=== PATIENT | male | born 1970 | race Caucasian/White ===

== ENCOUNTER → 2017-03-13 11:40 | Outpatient (REF) | payer MEDICARE, SELFPAY ==
[2017-03-13 14:18] LABS: Amphetamine/Metha Screen,Urine Negative ng/mL (<1000); Barbiturates Screen,Urine Negative ng/mL (<200); Benzodiazepines Screen,Urine Negative ng/mL (200); Cannabinoid Screen,Urine Negative ng/mL (<50); Cocaine Screen,Urine Negative ng/g (<300); Methadone Screen,Urine Negative ng/mL (<300); Opiate Screen,Urine Negative ng/mL (<300); Phencyclidine Screen,Urine Negative ng/mL (<25)
== END ==
LOC: LAB 11:40
PROVIDERS: Visit Provider Emergency Medicine
DX: Z79.891 Long term (current) use of opiate analgesic (principal)
CPT/HCPCS: 80305

== ENCOUNTER → 2017-04-10 11:00 | Outpatient (CLI) | payer MEDICARE, SELFPAY ==
[2017-04-10 17:45] LABS: Amphetamine/Metha Screen,Urine Negative ng/mL (<1000); Barbiturates Screen,Urine Negative ng/mL (<200); Benzodiazepines Screen,Urine Negative ng/mL (200); Cannabinoid Screen,Urine Negative ng/mL (<50); Cocaine Screen,Urine Negative ng/g (<300); Methadone Screen,Urine Negative ng/mL (<300); Opiate Screen,Urine Negative ng/mL (<300); Phencyclidine Screen,Urine Negative ng/mL (<25)
== END ==
PROVIDERS: Visit Provider Emergency Medicine
DX: Z79.899 Other long term (current) drug therapy (principal)
CPT/HCPCS: 80305

== ENCOUNTER → 2017-05-08 11:06 | Outpatient (REF) | payer MEDICARE, SELFPAY ==
[2017-05-08 15:13] LABS: Amphetamine/Metha Screen,Urine Negative ng/mL (<1000); Barbiturates Screen,Urine Negative ng/mL (<200); Benzodiazepines Screen,Urine Negative ng/mL (200); Cannabinoid Screen,Urine Negative ng/mL (<50); Cocaine Screen,Urine Negative ng/g (<300); Methadone Screen,Urine Negative ng/mL (<300); Opiate Screen,Urine Positive ng/mL (<300); Phencyclidine Screen,Urine Negative ng/mL (<25)
== END ==
LOC: LAB 11:06
PROVIDERS: Visit Provider Emergency Medicine
DX: Z79.899 Other long term (current) drug therapy (principal)
CPT/HCPCS: 80305

== ENCOUNTER → 2017-06-08 09:24 | Outpatient (REF) | payer MEDICARE, SELFPAY ==
[2017-06-08 13:44] LABS: Amphetamine/Metha Screen,Urine Negative ng/mL (<1000); Barbiturates Screen,Urine Negative ng/mL (<200); Benzodiazepines Screen,Urine Negative ng/mL (200); Cannabinoid Screen,Urine Negative ng/mL (<50); Cocaine Screen,Urine Negative ng/g (<300); Methadone Screen,Urine Negative ng/mL (<300); Opiate Screen,Urine Negative ng/mL (<300); Phencyclidine Screen,Urine Negative ng/mL (<25)
== END ==
LOC: LAB 09:24
PROVIDERS: Visit Provider Emergency Medicine
DX: G89.29 Other chronic pain (principal); Z79.899 Other long term (current) drug therapy
CPT/HCPCS: 80305

== ENCOUNTER → 2017-07-06 11:10 | Outpatient (REF) | payer MEDICARE, SELFPAY ==
[2017-07-06 14:17] LABS: Amphetamine/Metha Screen,Urine Negative ng/mL (<1000); Barbiturates Screen,Urine Negative ng/mL (<200); Benzodiazepines Screen,Urine Negative ng/mL (200); Cannabinoid Screen,Urine Negative ng/mL (<50); Cocaine Screen,Urine Negative ng/g (<300); Methadone Screen,Urine Negative ng/mL (<300); Opiate Screen,Urine Negative ng/mL (<300); Phencyclidine Screen,Urine Negative ng/mL (<25)
== END ==
LOC: LAB 11:10
PROVIDERS: Visit Provider Emergency Medicine
DX: G89.29 Other chronic pain (principal)
CPT/HCPCS: 80305

== ENCOUNTER → 2017-07-31 13:06 | Outpatient (CLI) | payer MEDICARE, SELFPAY ==
[2017-07-31 18:31] LABS: Amphetamine/Metha Screen,Urine Negative ng/mL (<1000); Barbiturates Screen,Urine Negative ng/mL (<200); Benzodiazepines Screen,Urine Negative ng/mL (200); Cannabinoid Screen,Urine Negative ng/mL (<50); Cocaine Screen,Urine Negative ng/g (<300); Methadone Screen,Urine Negative ng/mL (<300); Opiate Screen,Urine Positive ng/mL (<300); Phencyclidine Screen,Urine Negative ng/mL (<25)
== END ==
PROVIDERS: Visit Provider Emergency Medicine
DX: G89.29 Other chronic pain (principal)
CPT/HCPCS: 80305

== ENCOUNTER → 2017-09-02 13:20 | Outpatient (CLI) | payer MEDICARE, SELFPAY ==
[2017-09-02 18:37] LABS: Amphetamine/Metha Screen,Urine Negative ng/mL (<1000); Barbiturates Screen,Urine Negative ng/mL (<200); Benzodiazepines Screen,Urine Negative ng/mL (<200); Cannabinoid Screen,Urine Negative ng/mL (<50); Cocaine Screen,Urine Negative ng/mL (<300); Methadone Screen,Urine Negative ng/mL (<300); Opiate Screen,Urine Negative ng/mL (<300); Phencyclidine Screen,Urine Negative ng/mL (<25)
== END ==
PROVIDERS: Visit Provider Emergency Medicine
DX: G89.29 Other chronic pain (principal)
CPT/HCPCS: 80305

== ENCOUNTER → 2017-10-02 10:16 | Outpatient (REF) | payer MEDICARE, SELFPAY ==
[2017-10-06 16:22] LABS: Amphetamine/Metha Screen,Urine Negative ng/mL (<1000); Barbiturates Screen,Urine Negative ng/mL (<200); Benzodiazepines Screen,Urine Negative ng/mL (<200); Cannabinoid Screen,Urine Negative ng/mL (<50); Cocaine Screen,Urine Negative ng/mL (<300); Methadone Screen,Urine Negative ng/mL (<300); Opiate Screen,Urine Negative ng/mL (<300); Phencyclidine Screen,Urine Negative ng/mL (<25)
== END ==
LOC: LAB 10:16
PROVIDERS: Visit Provider Emergency Medicine
DX: Z79.899 Other long term (current) drug therapy (principal)
CPT/HCPCS: 80305

== ENCOUNTER → 2017-10-22 08:25 | Outpatient (CLI) | payer MEDICARE, SELFPAY ==
--- NOTE | 2017-10-22 08:32 | XR_ITS ---
XR hip RT 2-3V w/pelvis HISTORY: ITS.REASON: RIGHT HIP PAIN ORDERING PHYSICIAN: Reynaldo Sanabria MD PATIENT AGE: 47 years COMPARISON: None FINDINGS: No fracture or dislocation is evident. There is minimal spurring along the inferior aspect of the acetabulum with slight decrease in the joint space medially. No lytic or blastic change. Minimal calcification noted in the medial aspect of the upper thigh possibly vascular. IMPRESSION: Minimal osteoarthritic change of the right hip
== END ==
PROVIDERS: PCP Emergency Medicine; Visit Provider Orthopaedic Surgery
DX: M25.551 Pain in right hip (principal)
CPT/HCPCS: 73502

== ENCOUNTER → 2017-11-02 13:09 | Outpatient (REF) | payer MEDICARE, SELFPAY ==
[2017-11-02 18:26] LABS: Amphetamine/Metha Screen,Urine Negative ng/mL (<1000); Barbiturates Screen,Urine Negative ng/mL (<200); Benzodiazepines Screen,Urine Negative ng/mL (<200); Cannabinoid Screen,Urine Negative ng/mL (<50); Cocaine Screen,Urine Negative ng/mL (<300); Methadone Screen,Urine Negative ng/mL (<300); Opiate Screen,Urine Negative ng/mL (<300); Phencyclidine Screen,Urine Negative ng/mL (<25)
== END ==
LOC: LAB 13:09
PROVIDERS: PCP Emergency Medicine; Visit Provider Emergency Medicine
DX: G89.29 Other chronic pain (principal)
CPT/HCPCS: 80305

== ENCOUNTER → 2017-11-19 14:14 | Outpatient (CLI) | payer MEDICARE, SELFPAY ==
--- NOTE | 2017-11-19 14:15 | MR_ITS ---
MR hip RT wo con HISTORY: Right hip pain right leg pain with numbness and tingling ITS.REASON: hip pain ORDERING PHYSICIAN: Leonel Mark MD PATIENT AGE: 47 years COMPARISON: 10/22/2017 TECHNIQUE: Routine multiplanar multiecho sequences performed without contrast FINDINGS: No obvious fracture or dislocation. No evidence of avascular necrosis. There are minimal osteoarthritic changes of the hips with slight decrease in the joint space. The surrounding soft tissues have an unremarkable appearance. No significant joint effusion. There is slight increased T1 and T2 signal involving the anterior aspect of the lower ileum on both sides and may be related to some partial red marrow replacement. Incidental note is made of a right renal allograft within the pelvis. There is a 6 small right subarticular cyst in the lateral aspect of the acetabulum measuring approximately 9 mm. IMPRESSION: 1. Minimal osteoarthritic changes of the hips with a small subarticular cyst of the right acetabulum. 2. No acute finding with no evidence of avascular necrosis, fracture, or other significant anomalies
--- NOTE | 2017-11-19 14:15 | MR_ITS ---
MR lumbar spine wo con, MR 3-d myelogram/MRCP HISTORY: RT hip pain x2YRS. RT leg pain, numbness, and tingling. Hx kidney transplant. ITS.REASON: hip pain ORDERING PHYSICIAN: Leonel Mark MD PATIENT AGE: 47 years Comparison: None TECHNIQUE: Standard multiplanar multiecho sequences are performed without contrast. 3-D MIP and myelographic images are also rendered and reviewed FINDINGS: The spinal cord ends at the L1 level. There is normal alignment T12-L1: Minimal disc desiccation. L1-L2: Unremarkable. L2-L3: Mild facet and ligamentous hypertrophy L3-L4: Mild facet and ligamentum flavum hypertrophy. L4-5: There is mild concentric bulging disc along with facet and ligamentum hypertrophy with moderate right-sided foraminal narrowing and bilateral lateral recess narrowing. The bulging disc abuts the anterior aspect of both L5 nerve roots without displacement. . The disc is somewhat eccentric toward the right causing moderate right foraminal narrowing. L5-S1: Mild degenerative disc disease with small broad-based central disc protrusion slightly eccentric toward the left abutting the intermediate aspect of the left L5 nerve root. There is an annular fissure in the L5-S1 disc posteriorly and centrally. No extruded herniated disc or canal stenosis is evident. IMPRESSION: 1. L4-5: There is mild concentric bulging disc along with facet and ligamentum hypertrophy with moderate right-sided foraminal narrowing and bilateral lateral recess narrowing. The bulging disc abuts the anterior aspect of both L5 nerve roots without displacement. . The disc is somewhat eccentric toward the right causing moderate right foraminal narrowing. 2. L5-S1: Mild degenerative disc disease with small broad-based central disc protrusion slightly eccentric toward the left abutting the anteromedial aspect of the left L5 nerve root. There is an annular fissure in the L5-S1 disc posteriorly and centrally
== END ==
PROVIDERS: PCP Emergency Medicine; Visit Provider Emergency Medicine
DX: M51.16 Intervertebral disc disorders with radiculopathy, lumbar region (principal); M25.551 Pain in right hip; M54.5 Low back pain
CPT/HCPCS: 72148; 73721; 76376

== ENCOUNTER → 2017-12-30 19:42 | Outpatient (CLI) | payer MEDICARE, SELFPAY ==
[2017-12-30 21:22] LABS: Amphetamine/Metha Screen,Urine Negative ng/mL (<1000); Barbiturates Screen,Urine Negative ng/mL (<200); Benzodiazepines Screen,Urine Negative ng/mL (<200); Cannabinoid Screen,Urine Negative ng/mL (<50); Cocaine Screen,Urine Negative ng/mL (<300); Methadone Screen,Urine Negative ng/mL (<300); Opiate Screen,Urine Negative ng/mL (<300); Phencyclidine Screen,Urine Negative ng/mL (<25)
== END ==
PROVIDERS: Visit Provider Emergency Medicine
DX: M51.36 Other intervertebral disc degeneration, lumbar region (principal)
CPT/HCPCS: 80305

== ENCOUNTER → 2018-01-13 09:53 | Outpatient (CLI) | payer MEDICARE, SELFPAY ==
[2018-01-13 11:41] LABS: Albumin Level 3.6 gm/dL (3.4-5.0); Anion Gap 12.4 mEq/L (5-15); Blood Urea Nitrogen 19 mg/dL (7-18); Calcium 9.6 mg/dL (8.5-10.1); Carbon Dioxide 30 mmol/L (21.0-32.0); Chloride 103 mmol/L (98-107); Creatinine,Serum 1.32 mg/dL (0.70-1.30); Estimated Glomerular Filt Rate 58 ml/min (>60); GFR (African American) 70 ML/MIN (>60); Glucose 80 mg/dL (74-106); Phosphorous 4.1 mg/dL (2.4-4.9); Potassium 4.4 mmoL/L (3.5-5.1); Sodium 141 mmol/L (136-145)
== END ==
PROVIDERS: Visit Provider Internal Medicine Nephrology
DX: N18.9 Chronic kidney disease, unspecified (principal); Z79.899 Other long term (current) drug therapy; Z94.0 Kidney transplant status
CPT/HCPCS: 36415; 80069

== ENCOUNTER → 2018-01-29 14:40 | Outpatient (CLI) | payer MEDICARE, SELFPAY ==
[2018-01-29 16:37] LABS: Amphetamine/Metha Screen,Urine Negative ng/mL (<1000); Barbiturates Screen,Urine Negative ng/mL (<200); Benzodiazepines Screen,Urine Negative ng/mL (<200); Cannabinoid Screen,Urine Negative ng/mL (<50); Cocaine Screen,Urine Negative ng/mL (<300); Methadone Screen,Urine Negative ng/mL (<300); Opiate Screen,Urine Negative ng/mL (<300); Phencyclidine Screen,Urine Negative ng/mL (<25)
[2018-02-06 13:08] LABS: Oxycodone (GC/MS) 1353 ng/mL (Cutoff=100)
[2018-02-06 14:00] LABS: Opiates Negative (Cutoff=100); Oxymorphone (GC/MS) 727 ng/mL (Cutoff=100)
== END ==
PROVIDERS: Visit Provider Emergency Medicine
DX: M51.36 Other intervertebral disc degeneration, lumbar region (principal); N18.9 Chronic kidney disease, unspecified; Z79.899 Other long term (current) drug therapy; Z94.0 Kidney transplant status
CPT/HCPCS: 80305; 80361; 80365; G0480

== ENCOUNTER → 2018-02-26 11:30 | Outpatient (CLI) | payer MEDICARE, SELFPAY ==
[2018-02-26 11:37] LABS: Microscopic, Urine URINE MICROSCOPIC (MICROSCOPIC)
[2018-02-26 12:27] LABS: Basophils % 0.5 % (0.1-2.0); Eosinophils # 0.3 K/mm3 (0.0-0.4); Eosinophils % 4.4 % (0.1-12.0); Lymphocytes # 1.5 K/mm3 (0.7-4.5); Mean Corpuscular HGB Conc 32.6 g/dL (31.8-35.4); Mean Corpuscular Hemoglobin 32.9 pg (27.0-31.2); Mean Corpuscular Volume 101.1 fl (80-94); Mean Platelet Volume 6.6 fl (7.4-10.4); Monocytes # 0.5 K/mm3 (0.1-1.0); Neutrophils # 3.7 K/mm3 (1.8-7.8); Neutrophils % 62.1 % (37.0-80.0); Platelet Count 243 K/mm3 (142-424); Red Blood Count 4.55 M/mm3 (4.60-6.20); White Blood Count 5.9 K/mm3 (4.8-10.8)
[2018-02-26 13:30] LABS: Appearance,Urine CLEAR (Clear); Bilirubin,Urine Negative (Negative); Blood, Urine 3+ (Negative); Color,Urine YELLOW (Yellow); Glucose,Urine (UA) Negative (Negative); Ketones,Urine Negative (Negative); Leukocyte Esterase,Urine Negative (Negative); Nitrate,Urine Negative (Negative); Protein,Urine Negative (Negative); Urobilinogen,Urine 0.2 EU/dl (0.2)
[2018-02-26 13:33] LABS: Albumin Level 3.7 gm/dL (3.4-5.0); Anion Gap 15.9 mEq/L (5-15); Blood Urea Nitrogen 19 mg/dL (7-18); Calcium 9.2 mg/dL (8.5-10.1); Carbon Dioxide 24 mmol/L (21.0-32.0); Chloride 102 mmol/L (98-107); Creatinine,Serum 1.29 mg/dL (0.70-1.30); Estimated Glomerular Filt Rate 59 ml/min (>60); GFR (African American) 72 ML/MIN (>60); Glucose 115 mg/dL (74-106); Magnesium 1.4 mg/dL (1.4-2.2); Phosphorous 4.1 mg/dL (2.4-4.9); Potassium 4.9 mmoL/L (3.5-5.1); Sodium 137 mmol/L (136-145)
[2018-02-26 14:58] LABS: Bacteria,Urine Trace /lpf; Squamous Epithelial Cell,Urine Occasional #/hpf (0-5)
[2018-02-26 16:11] LABS: Amphetamine/Metha Screen,Urine Negative ng/mL (<1000); Barbiturates Screen,Urine Negative ng/mL (<200); Benzodiazepines Screen,Urine Negative ng/mL (<200); Cannabinoid Screen,Urine Negative ng/mL (<50); Cocaine Screen,Urine Negative ng/mL (<300); Methadone Screen,Urine Negative ng/mL (<300); Opiate Screen,Urine Negative ng/mL (<300); Phencyclidine Screen,Urine Negative ng/mL (<25)
[2018-03-04 04:18] LABS: Oxycodone (GC/MS) 800 ng/mL (Cutoff=100)
[2018-03-05 17:06] LABS: Opiates Negative (Cutoff=100); Oxymorphone (GC/MS) 568 ng/mL (Cutoff=100)
== END ==
PROVIDERS: Internal Medicine Nephrology; Visit Provider Emergency Medicine
DX: M51.36 Other intervertebral disc degeneration, lumbar region (principal); N18.9 Chronic kidney disease, unspecified; Z94.0 Kidney transplant status; Z79.899 Other long term (current) drug therapy
CPT/HCPCS: 36415; 80069; 80305; 80361; 80365; 81001; 83735; 85025; G0480

== ENCOUNTER → 2018-04-27 11:30 | Outpatient (CLI) | payer MEDICARE, SELFPAY ==
[2018-04-28 15:17] LABS: Amphetamine/Metha Screen,Urine Negative ng/mL (<1000); Barbiturates Screen,Urine Negative ng/mL (<200); Benzodiazepines Screen,Urine Negative ng/mL (<200); Cannabinoid Screen,Urine Negative ng/mL (<50); Cocaine Screen,Urine Negative ng/mL (<300); Methadone Screen,Urine Negative ng/mL (<300); Opiate Screen,Urine Positive ng/mL (<300); Phencyclidine Screen,Urine Negative ng/mL (<25)
== END ==
PROVIDERS: Visit Provider Emergency Medicine
DX: M51.36 Other intervertebral disc degeneration, lumbar region (principal)
CPT/HCPCS: 80305

== ENCOUNTER → 2018-06-23 16:00 | Outpatient (CLI) | payer MEDICARE, SELFPAY ==
[2018-06-24 12:14] LABS: Amphetamine/Metha Screen,Urine Negative ng/mL (<1000); Barbiturates Screen,Urine Negative ng/mL (<200); Benzodiazepines Screen,Urine Negative ng/mL (<200); Cannabinoid Screen,Urine Negative ng/mL (<50); Cocaine Screen,Urine Negative ng/mL (<300); Methadone Screen,Urine Negative ng/mL (<300); Opiate Screen,Urine Positive ng/mL (<300); Phencyclidine Screen,Urine Negative ng/mL (<25)
== END ==
PROVIDERS: Visit Provider Emergency Medicine
DX: M51.36 Other intervertebral disc degeneration, lumbar region (principal)
CPT/HCPCS: 80305

== ENCOUNTER → 2018-08-18 16:58 | Outpatient (CLI) | payer MEDICARE, SELFPAY ==
[2018-08-18 18:25] LABS: Amphetamine/Metha Screen,Urine Negative ng/mL (<1000); Barbiturates Screen,Urine Negative ng/mL (<200); Benzodiazepines Screen,Urine Negative ng/mL (<200); Cannabinoid Screen,Urine Negative ng/mL (<50); Cocaine Screen,Urine Negative ng/mL (<300); Methadone Screen,Urine Negative ng/mL (<300); Opiate Screen,Urine Positive ng/mL (<300); Phencyclidine Screen,Urine Negative ng/mL (<25)
== END ==
LOC: LAB 16:59 → LAB.DROPOF 17:18
PROVIDERS: Visit Provider Emergency Medicine
DX: M51.36 Other intervertebral disc degeneration, lumbar region (principal)
CPT/HCPCS: 80305

== ENCOUNTER → 2018-10-19 16:53 | Outpatient (CLI) | payer MEDICARE, SELFPAY ==
[2018-10-19 19:44] LABS: Amphetamine/Metha Screen,Urine Negative ng/mL (<1000); Barbiturates Screen,Urine Negative ng/mL (<200); Benzodiazepines Screen,Urine Negative ng/mL (<200); Cannabinoid Screen,Urine Negative ng/mL (<50); Cocaine Screen,Urine Negative ng/mL (<300); Methadone Screen,Urine Negative ng/mL (<300); Opiate Screen,Urine Positive ng/mL (<300); Phencyclidine Screen,Urine Negative ng/mL (<25)
== END ==
PROVIDERS: Visit Provider Emergency Medicine
DX: M51.36 Other intervertebral disc degeneration, lumbar region (principal)
CPT/HCPCS: 80305

== ENCOUNTER → 2018-11-17 16:51 | Outpatient (CLI) | payer MEDICARE, SELFPAY | PROVIDERS: Visit Provider Emergency Medicine | DX: R50.9 Fever, unspecified (principal) | CPT/HCPCS: 87086 ==

== ENCOUNTER → 2018-12-07 11:39 | Outpatient (CLI) | payer MEDICARE, SELFPAY ==
[2018-12-08 08:25] LABS: HIV Screen 4th Generation wRfx Non Reactive (Non Reactive)
[2018-12-09 10:57] LABS: Treponema pallidum Ab (FTA-ABS Non Reactive (Non Reactive)
[2018-12-09 21:08] LABS: Neisseria gonorrhoeae, NAA Negative (Negative)
== END ==
PROVIDERS: Visit Provider Nurse Practitioner Family
DX: Z20.2 Contact with and (suspected) exposure to infections with a predominantly sexual mode of transmission (principal); Z11.4 Encounter for screening for human immunodeficiency virus [HIV]
CPT/HCPCS: 86703; 86780; 87491; 87591; G0432

== ENCOUNTER → 2018-12-17 13:38 | Outpatient (CLI) | payer MEDICARE, SELFPAY ==
[2018-12-17 15:26] LABS: Amphetamine/Metha Screen,Urine Negative ng/mL (<1000); Barbiturates Screen,Urine Negative ng/mL (<200); Benzodiazepines Screen,Urine Negative ng/mL (<200); Cannabinoid Screen,Urine Negative ng/mL (<50); Cocaine Screen,Urine Negative ng/mL (<300); Methadone Screen,Urine Negative ng/mL (<300); Opiate Screen,Urine Negative ng/mL (<300); Phencyclidine Screen,Urine Negative ng/mL (<25)
[2018-12-26 13:17] LABS: Oxycodone Positive (.); Oxymorphone Positive (.)
[2018-12-26 17:23] LABS: Oxycodone Confirm 436 ng/mL (Cutoff=100); Oxymorphone Confirm 476 ng/mL (Cutoff=100)
== END ==
PROVIDERS: Visit Provider Emergency Medicine
DX: M51.36 Other intervertebral disc degeneration, lumbar region (principal); Z79.899 Other long term (current) drug therapy
CPT/HCPCS: 80305; 80365

== ENCOUNTER → 2019-02-01 16:45 | Outpatient (CLI) | payer MEDICARE, SELFPAY ==
[2019-02-01 18:34] LABS: Amphetamine/Metha Screen,Urine Negative ng/mL (<1000); Barbiturates Screen,Urine Negative ng/mL (<200); Benzodiazepines Screen,Urine Negative ng/mL (<200); Cannabinoid Screen,Urine Negative ng/mL (<50); Cocaine Screen,Urine Negative ng/mL (<300); Methadone Screen,Urine Negative ng/mL (<300); Opiate Screen,Urine Negative ng/mL (<300); Phencyclidine Screen,Urine Negative ng/mL (<25)
[2019-02-10 10:21] LABS: Oxycodone Positive (.); Oxymorphone Positive (.)
[2019-02-10 11:13] LABS: Oxycodone Confirm 477 ng/mL (Cutoff=100); Oxymorphone Confirm 767 ng/mL (Cutoff=100)
== END ==
PROVIDERS: Visit Provider Emergency Medicine
DX: M51.36 Other intervertebral disc degeneration, lumbar region (principal); Z79.899 Other long term (current) drug therapy
CPT/HCPCS: 80305; 80365

== ENCOUNTER → 2020-01-03 12:45 | Outpatient (CLI) | payer MEDICARE, SELFPAY ==
--- NOTE | 2020-01-03 13:46 | CA_ITS ---
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 Probable occlusion of the left mid to distal radial artery. Velocities are decreased in the left axillary,brachial, proximal radial and ulnar arteries. 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 Probable occlusion of the left mid to distal radial artery. Velocities are decreased in the left axillary,brachial, proximal radial and ulnar arteries. Electronically signed by : Steven Rizvi MD 01/03/2020 17:28:11
== END ==
PROVIDERS: PCP Emergency Medicine; Visit Provider Emergency Medicine
DX: I73.89 Other specified peripheral vascular diseases (principal)
CPT/HCPCS: 93931

== ENCOUNTER → 2020-02-02 11:40 | Outpatient (CLI) | payer MEDICARE, SELFPAY ==
--- NOTE | 2020-02-02 12:04 | XR_ITS ---
PROCEDURE: XR CHEST 2V CLINICAL HISTORY: Effusion Shortness of air and smoker COMPARISON: No exams were available for comparison FINDINGS: The cardiomediastinal silhouette and pulmonary vascularity are within normal limits. Dense consolidation is present in the left lower lobe consistent with pneumonia and/or volume loss with effusion. Minimal prominence noted in the right suprahilar region. The right lung is clear. No acute bony findings. Pleural thickening is present along the left lateral and upper hemithorax possibly related to loculated effusion IMPRESSION: Dense consolidation of the left lower lobe with effusion. Pneumonia with parapneumonic effusion or postobstructive pneumonia is considered. Follow-up is strongly recommended. If the pneumonia does not clear then CT with contrast may provide further evaluation. There is some pleural thickening along the left lateral and upper hemithorax is well. Dictated by: Steven Rizvi MD 02/02/2020 13:27 Steven Rizvi MD in [facility] 02/02/2020 13:27
[2020-02-02 12:26] LABS: Basophils % 0.5 % (0.1-2.0); Eosinophils # 0.4 K/mm3 (0.0-0.4); Eosinophils % 4.5 % (0.1-12.0); Hematocrit 40.5 % (42.0-52.0); Lymphocytes # 1.7 K/mm3 (0.7-4.5); Mean Corpuscular HGB Conc 32.2 g/dL (31.8-35.4); Mean Corpuscular Hemoglobin 33.1 pg (27.0-31.2); Mean Corpuscular Volume 102.8 fl (80-94); Mean Platelet Volume 7.1 fl (7.4-10.4); Monocytes # 0.5 K/mm3 (0.1-1.0); Monocytes % 5.2 % (1.7-9.3); Neutrophils % 69.8 % (37.0-80.0); Platelet Count 485 K/mm3 (142-424); Red Blood Count 3.94 M/mm3 (4.60-6.20); Red Cell Distribution Width 14.8 % (11.5-17.5); White Blood Count 8.7 K/mm3 (4.8-10.8)
[2020-02-02 12:47] LABS: Chloride 101 mmol/L (98-107); Potassium 4.6 mmoL/L (3.5-5.1); Sodium 140 mmol/L (136-145)
[2020-02-02 12:50] LABS: Blood Urea Nitrogen 27 mg/dl (9-20); Estimated Glomerular Filt Rate 43 ml/min (>60); GFR (African American) 52 ML/MIN (>60)
[2020-02-02 12:51] LABS: Anion Gap 17.6 mEq/L (5-15); Calcium 10.4 mg/dl (8.4-10.2); Carbon Dioxide 26 mmol/L (22.0-30.0); Glucose 127 mg/dl (74-100)
== END ==
PROVIDERS: PCP Emergency Medicine; Visit Provider Internal Medicine Pulmonary Disease
DX: D86.1 Sarcoidosis of lymph nodes (principal); J45.909 Unspecified asthma, uncomplicated; J44.9 Chronic obstructive pulmonary disease, unspecified
CPT/HCPCS: 36415; 71046; 80048; 85025

== ENCOUNTER → 2020-02-06 09:55 | Outpatient (CLI) | payer MEDICARE, SELFPAY ==
--- NOTE | 2020-02-06 09:55 | US_ITS ---
PROCEDURE: US THORACENTESIS CLINICAL INDICATION: Effusion Left pleural effusion with shortness of breath COMPARISON: CR XR CHEST 2V from 02/02/2020 TECHNIQUE: Informed consent was obtain prior to procedure. After appropriate Time out, under aseptic conditions and local anesthesia with 1% buffered lidocaine using sonographic guidance a 6 Arabic Fueh-V-Ghuomfmp catheter was inserted into the pleural space in the left posterior hemithorax.. Approximately 1700 cc of serous fluid was drained. The patient tolerated the procedure well and left the radiology suite in stable condition. The fluid was sent to the laboratory for evaluation as requested. FINDINGS: Large left pleural effusion. Status post thoracentesis without complication. Post thoracentesis chest x-ray did not demonstrate any pneumothorax. IMPRESSION: Successful sonographic guided thoracentesis on the left complication. Dictated by: Steven Rizvi MD 02/07/2020 07:23 Steven Rizvi MD in [facility] 02/07/2020 07:23
--- NOTE | 2020-02-06 11:55 | XR_ITS ---
PROCEDURE: XR CHEST 2V CLINICAL HISTORY: S/P THORACENTESIS Follow-up thoracentesis, left-sided pleural effusion COMPARISON: CR XR CHEST 2V from 02/02/2020 FINDINGS: There has been an interval left-sided thoracentesis with marked reduction in size of the left pleural effusion with only small residual effusion noted. There is no evidence of pneumothorax. There is persistent left apical pleural thickening as well as increased density in the AP window of the mediastinum on the left. Patchy density is present in the left upper lobe which may be related to an area pneumonia or even developing nodule. Consider chest CT for further evaluation. There is mild prominence of the left hilum as well which chest CT with contrast is suggested. The left lower lobe atelectasis/collapse has improved with some mild residual opacification in the left lower lobe. No acute bony abnormalities. IMPRESSION: 1. Status post left-sided thoracentesis without evidence of pneumothorax with small residual effusion. 2. As above with left apical pleural thickening prominent left hilum/mediastinum and possible nodule or infiltrate in the left upper lobe with some patchy but improved density in the left lower lobe. CT chest with contrast may be of further value. Dictated by: Steven Rizvi MD 02/06/2020 12:23 Steven Rizvi MD in [facility] 02/06/2020 12:23
--- NOTE | 2020-02-06 15:00 | XR_ITS ---
PROCEDURE: XR CHEST 2V CLINICAL HISTORY: Follow-up thoracentesis COMPARISON: CR XR CHEST 2V from 02/02/2020 DX XR CHEST 2V from 02/06/2020 FINDINGS: No evidence of pneumothorax. There is increasing volume loss/consolidation in the left lower lobe. Pleural thickening noted in the left apex and left lateral hemithorax. There is increased density in the aortopulmonic window and in the left upper lobe. Right lung is clear. IMPRESSION: 1. Increasing consolidation/volume loss of the left lower lobe with no evidence of pneumothorax. 2. Persistent increased density in the AP window and in the left upper lobe with pleural thickening on the left. Consider chest CT with contrast for further evaluation. Dictated by: Steven Rizvi MD 02/06/2020 15:19 Steven Rizvi MD in [facility] 02/06/2020 15:19
[2020-02-07 10:33] LABS: Albumin, Body Fluid 2.9 g/dL (Not Estab.); Protein, Body Fluid 4.8 g/dL (.)
[2020-02-07 10:34] LABS: LD, Body Fluid 238 IU/L (.)
[2020-02-10 04:18] LABS: pH, Body Fluid 7.6 (Not Estab.)
== END ==
PROVIDERS: PCP Emergency Medicine; Visit Provider Internal Medicine Pulmonary Disease
DX: J90 Pleural effusion, not elsewhere classified (principal); R91.8 Other nonspecific abnormal finding of lung field; R06.02 Shortness of breath
CPT/HCPCS: 32555; 71046; 82042; 83615; 83986; 84155; 87070; 88112; 88305; 88342

== ENCOUNTER → 2020-02-14 13:21 | Outpatient (CLI) | payer MEDICARE, SELFPAY ==
--- NOTE | 2020-02-14 13:55 | XR_ITS ---
PROCEDURE: XR SHOULDER LT MIN 2V Referring Doctor: Mio Larkin Patient Age:49Y CLINICAL INDICATION: LT SHOULDER PAIN FOR SEVERAL MONTHS COMPARISON: CR XR CHEST 2V from 02/02/2020 DX XR CHEST 2V from 02/06/2020 FINDINGS: Left shoulder three views: AP internal and external rotation along with Y-view performed The mole head and neck are intact. Glenohumeral joint appears intact. . AC joint arthropathy noted with moderate spurring along the inferior aspect of the left AC joint.. The scapula and left upper ribs appear intact but the Apical pleural thickening at the left chest, again noted Incidental note calcification at the left carotid at or near the left carotid bifurcation at the left neck. IMPRESSION: No acute findings left shoulder. Glenohumeral joint intact The Degenerative changes at the left AC joint, otherwise unremarkable left shoulder Dictated by: Wang Carnes MD 02/14/2020 14:38 Wang Carnes MD in [facility] 02/14/2020 14:39
[2020-02-14 15:47] LABS: Basophils % 0.4 % (0.1-2.0); Eosinophils # 0.4 K/mm3 (0.0-0.4); Eosinophils % 4.6 % (0.1-12.0); Hematocrit 38.1 % (42.0-52.0); Hemoglobin 12.5 g/dL (14.1-18.0); Lymphocytes % 24.6 % (10-50); Mean Corpuscular HGB Conc 32.9 g/dL (31.8-35.4); Mean Corpuscular Hemoglobin 32.5 pg (27.0-31.2); Mean Corpuscular Volume 98.9 fl (80-94); Mean Platelet Volume 6.9 fl (7.4-10.4); Monocytes # 0.4 K/mm3 (0.1-1.0); Monocytes % 5.4 % (1.7-9.3); Neutrophils # 5.4 K/mm3 (1.8-7.8); Neutrophils % 64.9 % (37.0-80.0); Platelet Count 475 K/mm3 (142-424); Red Blood Count 3.85 M/mm3 (4.60-6.20); Red Cell Distribution Width 15.5 % (11.5-17.5); White Blood Count 8.3 K/mm3 (4.8-10.8)
[2020-02-14 16:33] LABS: Alanine Aminotransferase 10 U/L (12-78); Albumin Level 3.9 g/dl (3.5-5.0); Albumin/Globulin Ratio 1.2 (1.1-1.8); Alkaline Phosphatase 97 U/L (38-126); Anion Gap 15.7 mEq/L (5-15); Aspartate Amino Transferase 17 U/L (17-59); Bilirubin,Total 0.4 mg/dl (0.2-1.3); Blood Urea Nitrogen 25 mg/dl (9-20); Calcium 10.4 mg/dl (8.4-10.2); Carbon Dioxide 21 mmol/L (22.0-30.0); Chloride 103 mmol/L (98-107); Estimated Glomerular Filt Rate 46 ml/min (>60); GFR (African American) 55 ML/MIN (>60); Globulin 3.2 g/dL (1.3-3.2); Glucose 109 mg/dl (74-100); Lactate Dehydrogenase 102 U/L (313-618); Potassium 4.7 mmoL/L (3.5-5.1); Sodium 135 mmol/L (136-145); Total Protein,Serum 7.1 g/dl (6.3-8.2)
[2020-02-14 16:51] LABS: HCG,Quantitative 5 mIU/ml (0-5.42)
[2020-02-14 17:04] LABS: Prostate Specific Ag Screen 1.2 ng/ml (0.0-4.0)
[2020-02-16 11:49] LABS: CA 19-9 168 U/mL (0-35)
[2020-02-16 14:49] LABS: AFP, Tumor Marker 4.4 ng/mL (0.0-8.3); CEA 6.4 ng/mL (0.0-4.7)
[2020-02-18 23:34] LABS: Aspergillus flavus Negative (Neg:<1:1); Aspergillus fumigatus Negative (Neg:<1:1); Aspergillus niger Negative (Neg:<1:1)
[2020-02-19 07:08] LABS: Blastomyces Antibody Negative (Neg:<1:1)
== END ==
PROVIDERS: Visit Provider Internal Medicine Pulmonary Disease
DX: J84.10 Pulmonary fibrosis, unspecified (principal); J90 Pleural effusion, not elsewhere classified; C25.9 Malignant neoplasm of pancreas, unspecified; M25.512 Pain in left shoulder; R97.20 Elevated prostate specific antigen [PSA]; Z94.0 Kidney transplant status; R97.8 Other abnormal tumor markers; Z12.5 Encounter for screening for malignant neoplasm of prostate; Z87.891 Personal history of nicotine dependence
CPT/HCPCS: 36415; 73030; 80053; 82105; 82378; 83615; 84702; 85025; 86316; 86606; 86612; 86698; G0103

== ENCOUNTER 2020-02-19 12:21 | Emergency (ER) | payer MEDICARE, SELFPAY ==
--- NOTE | 2020-02-19 12:18 | ECG_ITS ---
APPROVED REPORT Exam: Resting ECG HR:89 bpm ECG Measurements Heart Rate 89 AXES MS 162 P 61 QRSd 98 QRS 38 QT 354 T 67 QTc 430 Conclusion Normal sinus rhythm Left atrial abnormality Inferior q waves, but of questionable significance Late R wave progression Abnormal ECG Electronically signed by : Shankar Carrasco, 02/19/2020 17:42:05
[2020-02-19 12:22] VITALS: BP 148/87; RESP 16; TEMP 36.6; O2SAT 98; BMI 23.4
--- NOTE | 2020-02-19 12:32 | XR_ITS ---
PROCEDURE: XR CHEST 2V CLINICAL HISTORY: chest pain Left-sided chest pain COMPARISON: CR XR CHEST 2V from 02/02/2020 DX XR CHEST 2V from 02/06/2020 CR XR CHEST 2V from 02/06/2020 US US THORACENTESIS from 02/06/2020 FINDINGS: Increased density is present in the left lower lobe consistent with a pleural effusion and lung collapse. The increased density is slightly worse compared to the previous exam. In addition, there is pleural thickening along the left hemithorax superiorly and there is consolidation in the left midlung which has developed since the previous exam. There is also some prominence of the mediastinum. The right lung is clear. IMPRESSION: Left lower lobe collapse with effusion with new area of consolidation/pneumonia in the left midlung. Prominent mediastinum. Suggest chest CT with contrast for further evaluation. Dictated by: Steven Rizvi MD 02/20/2020 05:34 Steven Rizvi MD in [facility] 02/20/2020 05:34
--- NOTE | 2020-02-19 12:32 | XR_ITS ---
PROCEDURE: XR SHOULDER LT MIN 2V CLINICAL INDICATION: chest/shoulder pain COMPARISON: CR XR SHOULDER LT MIN 2V from 02/14/2020 CR XR CHEST 2V from 02/19/2020 FINDINGS: No fracture or dislocation. No lytic or blastic change. There is normal mineralization. Mild osteoarthritic changes are present at the acromioclavicular joint Other findings:None. IMPRESSION: Mild osteoarthritis of the AC joint Dictated by: Steven Rizvi MD 02/20/2020 05:27 Steven Rizvi MD in [facility] 02/20/2020 05:27
--- NOTE | 2020-02-19 12:41 | HMH.EDGENADL ---
ED Disposition Clinical Impression: Chronic chest pain Disposition: Home, Self-Care Condition on Discharge: Good Referrals: PCP,No [Primary Care Provider] - - Critical Care Critical Care Time: No Attestation: On 02/19/20, the high probability of a clinically significant, sudden or life threatening deterioration of the following system(s) required my full and direct attention, intervention and personal management. The time I documented below is in addition to time spent performing reported procedures but includes the following listed in this critical care notation. Medical Decision Making - Medical Records Medical records reviewed: Yes: I reviewed the patient's medical records. - Pipo Inquiry Pt receiving controlled substance: No Vital Signs: 02/19/20 12:22 02/19/20 15:21 02/19/20 15:50 Temperature 98 F Temperature Source Oral Pulse Rate [Right Radial] 85 79 Respiratory Rate 16 18 Blood Pressure [Right Arm] 148/87 H 118/76 130/81 Blood Pressure Mean [Right Arm] 107 90 97 Blood Pressure Source [Right Arm] Automatic Cuff Automatic Cuff Automatic Cuff Blood Pressure Position [Right Arm] Sitting Sitting Sitting 02 Sat by Pulse Oximetry 98 97 97 Oxygen Delivery Method Room Air Room Air - Lab Data Lab Results 02/19/20 12:43: Amylase 47, Lipase 54 02/19/20 13:15: WBC 8.5, RBC 3.85 L, Hgb 12.6 L, Hct 37.7 L, MCV 97.8 H, MCH 32.7 H, MCHC 33.5, RDW 15.3, Plt Count 447 H, MPV 7.3 L, Neut % (Auto) 68.0, Lymph % (Auto) 20.2, Slope % (Auto) 6.8, Eos % (Auto) 4.5, Baso % (Auto) 0.5, Neut # (Auto) 5.8, Lymph # (Auto) 1.7, Slope # (Auto) 0.6, Eos # (Auto) 0.4, Baso # (Auto) 0.0 02/19/20 13:15: Sodium 141, Potassium 4.5, Chloride 105, Carbon Dioxide 26, Anion Gap 14.5, BUN 26 H, Creatinine 1.60 H, Estimated Creat Clear 59, Estimated GFR 46 L, Est GFR ( Amer) 55 L, Glucose 125 H, Calcium 10.6 H, Troponin I < 0.01 02/19/20 13:15: Total Bilirubin 0.4, Direct Bilirubin 0.2, Conjugated Bilirubin 0.0, Indirect Bilirubin 0.2, Unconjugated Bilirubin 0.1, AST 15 L, ALT 10 L, Alkaline Phosphatase 91, Total Protein 6.7, Albumin 3.7 02/19/20 15:20: Troponin I < 0.01 Result diagrams: 02/19/20 13:15 02/19/20 13:15 Orders (Tests/Meds): ED MEDICATIONS Discontinued Medications Generic Name Dose Route Start Last Admin Trade Name Serge PRN Reason Stop Dose Admin Morphine Sulfate 2 mg 02/19/20 12:32 02/19/20 12:49 Morphine 2mg/Ml Syringe IV 02/19/20 12:33 2 mg ONCE ONE Administration ORDERS Category Date Time Status US gallbladder Stat Exams 02/19/20 12:44 Taken XR chest 2V Stat Exams 02/19/20 12:32 Taken XR shoulder LT min 2V Stat Exams 02/19/20 12:32 Taken Troponin I Q3H Lab 02/19/20 18:45 Ordered Medical Decision Narrative: 49-year-old male with chronic chest pain presenting with acute on chronic chest pain and left shoulder pain. Nontoxic, afebrile, hemodynamically stable, oxygenating well on room air. Patient very concerned about his gallbladder despite me speaking with him about the possible etiology of his pain. Chest x-ray and left shoulder x-ray were negative for acute disease. Ultrasound of the gallbladder was negative. EKG is nonischemic and without arrhythmia. CBC, CMP are nonactionable. Troponins are flat and undetectable. Patient becoming very belligerent with the nursing staff and aggressive and threatening their safety so was discharged expeditiously upon ruling out emergent condition including pneumonia, pneumothorax, ACS, PE. General Adult HPI - General Chief complaint: PAIN Stated complaint: chest pain Time Seen by Provider: 02/19/20 12:21 Mode of Arrival: Ambulatory Limitations: No Limitations Description of Symptoms (Recalled from ER Triage Doc. by RN): PT c/o chest pain that has been ongoing for a couple of months with pain in his left shoulder also. Advises he came in today because the pain intensified - History of Present Illness HPI narrative: This
--- NOTE | 2020-02-19 12:44 | US_ITS ---
PROCEDURE: US GALLBLADDER CLINICAL INDICATION: abd pain Upper abdominal pain COMPARISON: MR [facility] CIRCULAR/O MRI-L-SPINE W/O from 07/09/2015 FINDINGS: Pancreas: Pancreas is not well delineated due to overlying bowel gas. CT or MRI without and with contrast with pancreatic protocol may provide further evaluation if clinically desired. Liver: Unremarkable. There is appropriate direction of blood flow within a non dilated portal vein. Right kidney: There is a right renal transplant in the pelvis which has an unremarkable appearance. The [facility] right kidney is not demonstrated. Gallbladder: Gallbladder wall is upper normal at 3 mm. There has not been appropriate fasting which could account for this finding. There is a persistent hyperechoic focus along the fundus of the gallbladder measuring approximately 7 mm. No shadowing evident from this area. This did not move and may represent a polyp. Common bile duct is normal at 6 mm. No shadowing stones are evident. IMPRESSION: 1. Gallbladder wall upper normal possibly due to nonfasting state. 2. Hyperechoic fixed focus within the fundus of the gallbladder at 7 mm which may be due to a polyp versus a nonshadowing adherent stone 3. Poor visualization of the pancreas Dictated by: Steven Rizvi MD 02/20/2020 09:59 Steven Rizvi MD in [facility] 02/20/2020 09:59
--- NOTE | 2020-02-19 13:13 | PC.NURSE ---
going to US
[2020-02-19 13:25] LABS: Amylase 47 U/L (30-110); Lipase 54 U/L (23-300)
[2020-02-19 13:28] LABS: Basophils % 0.5 % (0.1-2.0); Eosinophils # 0.4 K/mm3 (0.0-0.4); Eosinophils % 4.5 % (0.1-12.0); Hematocrit 37.7 % (42.0-52.0); Hemoglobin 12.6 g/dL (14.1-18.0); Lymphocytes # 1.7 K/mm3 (0.7-4.5); Lymphocytes % 20.2 % (10-50); Mean Corpuscular HGB Conc 33.5 g/dL (31.8-35.4); Mean Corpuscular Hemoglobin 32.7 pg (27.0-31.2); Mean Corpuscular Volume 97.8 fl (80-94); Mean Platelet Volume 7.3 fl (7.4-10.4); Monocytes # 0.6 K/mm3 (0.1-1.0); Monocytes % 6.8 % (1.7-9.3); Neutrophils # 5.8 K/mm3 (1.8-7.8); Platelet Count 447 K/mm3 (142-424); Red Blood Count 3.85 M/mm3 (4.60-6.20); Red Cell Distribution Width 15.3 % (11.5-17.5); White Blood Count 8.5 K/mm3 (4.8-10.8)
[2020-02-19 13:38] LABS: Anion Gap 14.5 mEq/L (5-15); Blood Urea Nitrogen 26 mg/dl (9-20); Calcium 10.6 mg/dl (8.4-10.2); Carbon Dioxide 26 mmol/L (22.0-30.0); Chloride 105 mmol/L (98-107); Creatinine Clearance Estimated 59 mL/min (50-200); Estimated Glomerular Filt Rate 46 ml/min (>60); GFR (African American) 55 ML/MIN (>60); Glucose 125 mg/dl (74-100); Potassium 4.5 mmoL/L (3.5-5.1); Sodium 141 mmol/L (136-145)
[2020-02-19 13:50] LABS: Alanine Aminotransferase 10 U/L (12-78); Albumin Level 3.7 g/dl (3.5-5.0); Alkaline Phosphatase 91 U/L (38-126); Aspartate Amino Transferase 15 U/L (17-59); Bilirubin,Direct 0.2 mg/dl (0.0-0.4); Bilirubin,Indirect 0.2 mg/dL (0.0-0.9); Bilirubin,Total 0.4 mg/dl (0.2-1.3); Bilirubin,Unconjugated 0.1 mg/dL (0.0-1.1); Total Protein,Serum 6.7 g/dl (6.3-8.2)
[2020-02-19 13:53] LABS: Troponin I < 0.01 ng/ml (0.00-0.034)
--- NOTE | 2020-02-19 15:11 | PC.NURSE ---
Lab at bedside
[2020-02-19 15:21] VITALS: BP 118/76; PULSE 85; O2SAT 97
[2020-02-19 15:47] LABS: Troponin I < 0.01 ng/ml (0.00-0.034)
[2020-02-19 15:50] VITALS: BP 130/81; PULSE 79; RESP 18; O2SAT 97
[2020-02-19 16:14] VITALS: BP 130/87; PULSE 74; RESP 16; TEMP 36.8; O2SAT 98
== END 2020-02-19 16:18 | disposition home or self-care (01) ==
PROVIDERS: Emergency Provider Physician Assistant
DX: R07.89 Other chest pain (principal); R73.9 Hyperglycemia, unspecified; K21.9 Gastro-esophageal reflux disease without esophagitis; R01.1 Cardiac murmur, unspecified; I10 Essential (primary) hypertension; E78.5 Hyperlipidemia, unspecified; Z87.891 Personal history of nicotine dependence; Z79.899 Other long term (current) drug therapy
CPT/HCPCS: 71046; 73030; 76705; 80048; 80076; 82150; 83690; 84484; 85025; 93005; 96374; 99283

== ENCOUNTER → 2020-02-27 09:10 | Outpatient (CLI) | payer MEDICARE, SELFPAY ==
--- NOTE | 2020-02-27 09:15 | CT_ITS ---
PROCEDURE: CT CHEST WO CON CLINICAL INDICATION: cough Pancreatic cancer Drain tube placed on thursday at COMPARISON: No exams were available for comparison TECHNIQUE: Axial images obtained with sagittal and coronal reformats. All CT scans at the facility use one or more dose reduction, viz: automated exposure control, ma/kV adjustment per patient size (including targeted exams where dose is matched to indication, i.e. head), or iterative reconstruction technique. FINDINGS: There are no previous exams available for comparison. The left lobe of the thyroid is slightly prominent. Atherosclerotic calcification involves the aortic arch. There are a few small mediastinal lymph nodes in the precarinal region and along the lower lateral aspect of the main pulmonary artery measuring up to 1.6x 0.9 cm. Coronary artery calcifications are present. There is minimal thickening of the pericardium COPD with centrilobular and paraseptal emphysematous change. There is mild bronchial thickening. On the left is there is a pleural drain present along the left lung base entering anteriorly then directed anteriorly and then posterior along the left heart border with the tip of the drain along the left posterior costophrenic sulcus. There is fluid present in the left major fissure and there is a small left-sided pleural effusion. Loculated fluid is present along the posterior hemithorax on the left. In the left apex there is a nodular density which measures 8 mm. There is also some nodularity in the lingular region with a 9 and a 5 mm nodule present in the lingula and some subpleural densities which could be due to atelectatic changes. The lack of IV contrast decreases the sensitivity of the exam and decreases the sensitivity of detecting pleural implants. There are some mildly prominent lymph nodes in the left axilla with some stranding of the fat in the axillary region on the left. Upper abdominal images show severe bilateral renal atrophy. No acute bony finding evident. Cholelithiasis noted. There is given history of pancreatic cancer. The pancreas is not completely imaged. Portions of the pancreas superiorly have an unremarkable appearance. CT with pancreatic protocol would be needed for better definition of the pancreas. There is some thickening of the descending portion of the duodenum nonspecific. IMPRESSION: 1. Left-sided pleural drain present with small left effusion with fluid in the fissure and loculated along the posterior hemithorax. No evidence of pneumothorax. 2. There are few scattered nodular densities in the left upper lobe and lingula which are nonspecific. Comparison with previous exam is needed. Neoplasm is not excluded. Nodular implants of the pleura are difficult to evaluate without IV contrast. Correlation with old studies needed. 3. Mild mediastinal and left axillary adenopathy. Dictated by: Steven Rizvi MD 02/29/2020 09:46 Steven Rizvi MD in [facility] 02/29/2020 09:46
--- NOTE | 2020-02-27 09:15 | CT_ITS ---
PROCEDURE: CT ABDOMEN PELVIS WO CON CLINICAL INDICATION: pancreatic cancer COMPARISON: No exams were available for comparison TECHNIQUE: Axial images obtained with sagittal and coronal reformats. All CT scans at the facility use one or more dose reduction, viz: automated exposure control, ma/kV adjustment per patient size (including targeted exams where dose is matched to indication, i.e. head), or iterative reconstruction technique. FINDINGS: There are no previous exams available for comparison. Please see chest CT of the same day for lower thoracic findings. Left-sided pleural drain is present along the lower hemithorax on the left. Examination is somewhat limited without IV contrast. No focal liver lesion is evident. Cholelithiasis noted. Minimal gallbladder wall thickening the spleen and the adrenal glands have an unremarkable appearance. There is severe bilateral renal atrophy. There is some minimal nodularity along the anterior aspect of the body of the pancreas. Diagnosis submitted is pancreatic cancer. No peripancreatic lymph nodes or fluid collections are evident. There is a moderate amount of retained colonic feces. There is a right-sided pelvic renal transplant. No hydronephrosis or renal calculi parent. Small bowel intussusception noted in the left lower pelvic region. This may be transient in adults. Please correlate with clinical findings. No evidence of bowel obstruction. No pelvic mass apparent. There is a small umbilical hernia which contains fat. No acute bony findings. IMPRESSION: 1. Somewhat limited exam without IV contrast specially for evaluation of pancreatic lesion. There is some minimal nodularity along the anterior aspect of the body of the pancreas. This is of questionable clinical significance. Repeat exam with IV contrast or MRI may provide further evaluation. Correlation with old studies also suggested which are not available at this institution. 2. Moderate amount of retained colonic feces. 3. Small bowel intussusception in the left lower pelvic region which could be transient. Please correlate with clinical parameters. 4. Severe bilateral renal atrophy with right lower quadrant pelvic renal transplant. 5. Cholelithiasis with minimal gallbladder wall thickening which may be better evaluated with ultrasound. 6. Left-sided pleural drain present with small left effusion. Please see chest CT report for further description. Dictated by: Steven Rizvi MD 02/29/2020 10:04 Steven Rizvi MD in [facility] 02/29/2020 10:04
== END ==
PROVIDERS: PCP Emergency Medicine; Visit Provider Internal Medicine Medical Oncology
DX: C25.9 Malignant neoplasm of pancreas, unspecified (principal)
CPT/HCPCS: 71250; 74176

== ENCOUNTER → 2020-03-05 09:38 | Outpatient (CLI) | payer MEDICARE, OTHER, SELFPAY ==
[2020-03-05 10:48] LABS: Basophils % 0.4 % (0.1-2.0); Eosinophils # 0.4 K/mm3 (0.0-0.4); Eosinophils % 3.7 % (0.1-12.0); Hematocrit 37.3 % (42.0-52.0); Hemoglobin 12.2 g/dL (14.1-18.0); Lymphocytes # 1.6 K/mm3 (0.7-4.5); Lymphocytes % 16.4 % (10-50); Mean Corpuscular HGB Conc 32.6 g/dL (31.8-35.4); Mean Corpuscular Hemoglobin 32.6 pg (27.0-31.2); Mean Platelet Volume 11.9 fl (7.4-10.4); Monocytes # 0.6 K/mm3 (0.1-1.0); Neutrophils % 73.4 % (37.0-80.0); Platelet Count 478 K/mm3 (142-424); Red Blood Count 3.73 M/mm3 (4.60-6.20); Red Cell Distribution Width 15.6 % (11.5-17.5); White Blood Count 9.6 K/mm3 (4.8-10.8)
[2020-03-05 11:06] LABS: Chloride 103 mmol/L (98-107); Potassium 5.7 mmoL/L (3.5-5.1); Sodium 138 mmol/L (136-145)
[2020-03-05 11:09] LABS: Anion Gap 14.7 mEq/L (5-15); Blood Urea Nitrogen 32 mg/dl (9-20); Calcium 10.5 mg/dl (8.4-10.2); Carbon Dioxide 26 mmol/L (22.0-30.0); Estimated Glomerular Filt Rate 49 ml/min (>60); GFR (African American) 60 ML/MIN (>60); Glucose 123 mg/dl (74-100)
[2020-03-05 11:19] LABS: Coronavirus 19 IgG Antibody Negative (Negative); Coronavirus 19 IgM Antibody Negative (Negative)
== END ==
PROVIDERS: Visit Provider Surgery
DX: R59.0 Localized enlarged lymph nodes (principal); G89.29 Other chronic pain; R07.9 Chest pain, unspecified; Z01.812 Encounter for preprocedural laboratory examination; Z11.52 Encounter for screening for COVID-19
CPT/HCPCS: 36415; 80048; 85025; 86328

== ENCOUNTER 2020-03-06 11:40 | Observation (INO) | payer MEDICARE, OTHER, SELFPAY ==
[2020-03-02 14:25] VITALS: BMI 22.9
[2020-03-06] VITALS (19 sets, daily range): BP systolic 91–153; BP diastolic 42–99; PULSE 68–81; RESP 16–21; TEMP 36.1–37.1; O2SAT 93–98; BMI 23.6
--- NOTE | 2020-03-06 | CA_ITS ---
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: CT Indications Lower Extremity Pain: Left Left History of Smoking Risk Factors Malignancy Stage 4 Pancreatic CA Vein Imaging CFV (L): Partially Compressible SFJ (L): Partially Compressible FEM (L): Partially Compressible POP (L): Compressible DFV (L): compressive, spontaneous, phasic, augmentation PTV (L): compressive, spontaneous, phasic, augmentation GSV (L): compressive, spontaneous, phasic, augmentation SSV (L): Partially Compressible Peroneals (L):Partially Compressible GAS (L): Compressible, Compressiblecompressive, spontaneous, phasic, augmentation Findings LLL + DVT in CFV, SFV, Peroneal veins. SVT in LSV. Visible thrombus vessels partially compress. Dr Simpson notified. Conclusion LLL + DVT in CFV, SFV, Peroneal veins. SVT in LSV. Visible thrombus vessels partially compress. Dr Simpson notified. Critical Notification Date: 03/06/2020 Time: 10:50 Physician Name: Tatiana Report Read Back Electronically signed by : tSeven Rizvi MD 03/06/2020 15:16:41
--- NOTE | 2020-03-06 10:14 | HMH.ANESCL ---
[facility] Anesthesia Checklist - Structural Data Admitted From: Home Planned Operative Procedure/s: portacath Consent for Planned Operative Procedure(s) Verified: Yes - Additional verifications Anesthesia Reactions: No Hx Blood Transfusions: No Blood Transfusion Reaction: No - Airway Assessment C-Spine Mobility Assessed: Yes TMJ Mobility Assessed: Yes Dentition: Poor Dentition - Neurological Assessment Level of Consciousness: Awake, Alert, Appropriate - Anesthesia Plan Anesthesia Risk discussed: Yes Anesthesia Plan: Verified ASA Class: III Anesthesia Type: MAC [facility] History I have reviewed the patient's past medical history: Yes Medical History: Reports:: Cancer (lung/ pancreatic), Gastroesophageal Reflux Disease(GERD), Heart Murmur, Hyperlipidemia, Hypertension, Nephritis, Renal Disease Denies:: Diabetes Mellitus Type 1, Diabetes Mellitus Type 2, Internal Pacemaker, MRSA, Seizures *Have you ever received a pneumonia vaccine?: No *Have you received a flu vaccine this season?: No Other Medical History: Reports: Fibromyalgia, Thyroid Disease. Denies: Blood Transfusion Reaction Anesthesia experience/problems:: none Other Surgeries: Yes: Colonoscopy, Hernia Repair, Organ Transplant, Other. No: Pacemaker Amputation: No Fractures: No - *Social History Smoking Status: Current every day smoker Tobacco Type: cigarettes # Packs/Day (cigarettes): 1 Alcohol Intake: never Substance Use Type: denies use *Occupational Status:: disabled Housing: house Household Members: significant other *Travel in the last 8 weeks: None Family Hx:: Coronary Artery Disease, Heart Attack, Hyperlipidemia, Hypertension, Stroke
--- NOTE | 2020-03-06 12:11 | HMH.OPNOTE ---
Date of procedure: 03/06/20 Pre-op Diagnosis:: Metastatic pancreatic cancer, need for long-term venous access for chemotherapy Post-op Diagnosis:: Same Procedure performed:: Placement of single-lumen venous access device and left subclavian vein with implantable subcutaneous reservoir port (PowerPort) Surgeon:: Maxi Simpson MD BARKEEPER:: Other Anesthesia: LMA Estimated blood loss (mL): 10 Clinical Note:: Patient is a 49-year-old male referred by Dr. East after being seen yesterday for venous port placement. He had presented last month with malignant pleural effusion c/w adneocarcinoma. Immunostains are consistent with pancreatic primary. He had a left sided pleurx drain placed last week at . He states they removed 1900 ml. He states that he does have some residual shortness of air. Plan is to initiate chemotherapy in 1 to 2 weeks. He was sent for surgical consultation for port placement. Of note, the patient has a history of kidney transplant and previously underwent hemodialysis through right internal jugular vein catheters. Plan was for placement of hopeful left-sided PowerPort. On the morning of the planned procedure upon presentation patient was complaining of left lower extremity discomfort and significant soreness in his left calf. He therefore underwent urgent venous Doppler in the preoperative area and was found to have acute left lower extremity DVTs. Plan was made to proceed with port placement prior to initiation of anticoagulation. However, the patient was given therapeutic dose of Lovenox prior to procedure. Operative findings:: Unremarkable venous anatomy Operative note:: Patient was taken to the operating room. He was positioned in a supine position. General anesthesia was induced via LMA. Upper chest and neck was prepped and draped in the standard surgical fashion bilaterally. Patient positioned in Trendelenburg position. 18-gauge needle was inserted near the left deltopectoral groove. Needle was manipulated posterior to the clavicle. Left subclavian vein was cannulated. There was good return of venous flow. Guidewire was inserted. Small incision was made at the insertion site. Subcutaneous tissues were dilated using the dilator with breakaway sheath. Dilator and guidewire were removed. Catheter was then threaded through the breakaway sheath which was then removed. Fluoroscopy was used to confirm good positioning. Skin was marked with a skin marker for planned subcutaneous tunnel and subcutaneous pocket. Local anesthetic was infiltrated. Incision was made for subcutaneous pocket. Electrocautery was used to incise the subcutaneous tissues inferiorly creating subcutaneous pocket. Catheter was then tunneled subcutaneously. At this point it was noted that the expiration date on the PowerPort was several weeks . Therefore the catheter was removed. New PowerPort kit was brought onto new field. The left subclavian vein was then once again cannulated as previously noted. Guidewire was inserted. Dilator with breakaway sheath was then inserted over the guidewire. Dilator with guidewire were removed. Catheter was inserted through the breakaway sheath. Breakaway sheath was then removed. Catheter was tunneled subcutaneously to the previously created pocket. Fluoroscopy was used to position the tip of the catheter near the atriocaval junction. Catheter was cut to the appropriate length. Single-lumen PowerPort reservoir was secured to the catheter. This was then secured into the subcutaneous pocket using several 2-0 Vicryl sutures. Fluoroscopy was used to confirm good positioning of the catheter once again. The power port aspirated and flushed with saline without difficulty. It was then flushed with heparinized saline. There appeared to be good hemostasis. Incision was closed with running 2-0 Vicryl subdermal suture. Skin incisions were closed with 4-0 Monocryl in a subcuticular fashion. Clean dry
--- NOTE | 2020-03-06 12:13 | XR_ITS ---
PROCEDURE: XR CHEST AP CLINICAL HISTORY: PORT A CATH COMPARISON: DX XR CHEST 2V from 02/06/2020 CR XR CHEST 2V from 02/06/2020 CR XR CHEST 2V from 02/19/[address] CHEST WO CON from 02/27/2020 FINDINGS: Fluoro time: 26 seconds C-arm is utilized for Port-A-Cath placement. The tip overlies the region of the SVC. IMPRESSION: C-arm utilization for Port-A-Cath placement Dictated by: Steven Rizvi MD 03/06/2020 12:53 Steven Rizvi MD in OV 03/06/2020 12:53
--- NOTE | 2020-03-06 12:19 | XR_ITS ---
PROCEDURE: XR CHEST PORTABLE CLINICAL HISTORY: s/p port a cath placement Follow-up line placement COMPARISON: CR XR CHEST 2V from 02/06/2020 CR XR CHEST 2V from 02/19/[address] CHEST WO CON from 02/27/2020 CR XR CHEST AP from 03/06/2020 FINDINGS: Left upper extremity MediPort catheter has been placed. The tip is in good position in the region of the superior vena cava. There is no evidence of pneumothorax. Left-sided pleural drain remains in place with small left effusion. There is left apical pleural thickening and increased density in the mid and lower lung zone on the left which may be related to layering effusion, pleural thickening or fluid within the fissure as seen on previous CT scan. Right lung is clear. No acute bony abnormalities. IMPRESSION: 1. Status post left subclavian Port-A-Cath placement with tip in the region the SVC without evidence of pneumothorax. 2. Left-sided pleural drain with pleural thickening and increased density along the left lower chest. Dictated by: Steven Rizvi MD 03/06/2020 12:40 Steven Rizvi MD in OV 03/06/2020 12:40
--- NOTE | 2020-03-06 12:28 | PC.NURSE ---
1212-IPC device hooked to right leg only per MD orders 1215-LMA removed at this time, O2 at 2l/nc placed, sats stable, pt becoming alert 1217-radiology at bedside
--- NOTE | 2020-03-06 12:53 | PC.NURSE ---
1250 Report received from Krystina Calvo RN in PACU.
--- NOTE | 2020-03-06 12:54 | PC.NURSE ---
Pt arrived to the floor at this time.
--- NOTE | 2020-03-06 13:40 | PC.NURSE ---
1250-detailed report called to KRISTY Galeano 1251-pt transported to 2nd floor room 208 via stretcher w/nathalie rails up per KRISTY Kaiser and Golden,KRISTY-pt assisted into hospital bed, toll well-left pt in care of KRISTY Galeano with bed locked in lowest position, vss, pt stable
--- NOTE | 2020-03-06 14:04 | P.CONPHA_ITS ---
[facility] Pharmacy VTE Monitoring - Patient Demographics Admission date: 03/06/20 Report Date: 03/06/20 Time: 14:04 Allergies/Adverse Reactions: Patient Allergies erythromycin base Allergy (Intermediate, Verified 03/02/20 14:38) sulfamethoxazole [From Bactrim] Allergy (Mild, Verified 03/02/20 14:38) Rash trimethoprim [From Bactrim] Allergy (Mild, Verified 03/02/20 14:38) Rash diltiazem [From Cardizem] Allergy (Verified 03/02/20 14:38) Blister Height: 1.78 m Weight: 72.575 kg - VTE Risk Was VTE Risk Assessment Performed: Yes VTE Score: 4 VTE Risk Level: Low Risk - Prophylaxis VTE Prophylaxis Ordered?: Yes Types of VTE Prophylaxis: Pharmacological Pharmacologic Type: Heparin
--- NOTE | 2020-03-06 14:04 | HMH.PHAHEP ---
[facility] Pharmacy Heparin Dosing - Demographic Data Admission date:: 03/06/20 Date: 03/06/20 Time: 14:05 Allergies/Adverse Reactions: Allergies Allergy/AdvReac Type Severity Reaction Status Date / Time erythromycin base Allergy Intermediate Verified 03/02/20 14:38 sulfamethoxazole Allergy Mild Rash Verified 03/02/20 14:38 [From Bactrim] trimethoprim [From Bactrim] Allergy Mild Rash Verified 03/02/20 14:38 diltiazem [From Cardizem] Allergy Blister Verified 03/02/20 14:38 Height: 1.78 m Weight: 72.5 kg - Indication Medication therapy:: Heparin Patient Problems: Current Active Problems DVT (deep venous thrombosis) (Acute) Pancreatic adenocarcinoma (Acute) IgA nephropathy (Chronic) Tobacco use (Acute) Chronic pain (Chronic) Hypertension (Chronic) CVA?: No Bleeding problem?: No Kidney disease?: No LA?: No Desired PTT range:: 50-70 seconds - Monitoring Dose Monitor 1 Date: 03/06/20 Time: 14:30 PTT Result:: 36.4 Infusion Rate:: 1,300 UNITS Comment:: 5,000 UNIT BOLUS Dose Monitor 2 Date: 03/06/20 Time: 21:45 PTT Result:: 47.6 Infusion Rate:: RATE INCREASED TO 27 ML/HR - Core Measures Is INR > or = 2 at discharge?: No If INR was < than 2.0 why was therapy stopped?: CHANGE TO XARELTO Were Heparin and Warfarin started on the same day?: No If not, why?: CHANGE TO XARELTO
--- NOTE | 2020-03-06 14:45 | SUR.OPER ---
1140-contamination noted. surgeon and breeding technician changed gloves. back table trashed and new supplies and instruments opened. pt redraped. additional dose of ancef given. wound washed out with saline.
[2020-03-06 15:35] LABS: Basophils % 0.3 % (0.1-2.0); Eosinophils # 0.3 K/mm3 (0.0-0.4); Eosinophils % 3.9 % (0.1-12.0); Hematocrit 32.1 % (42.0-52.0); Hemoglobin 10.7 g/dL (14.1-18.0); Lymphocytes % 25.7 % (10-50); Mean Corpuscular HGB Conc 33.4 g/dL (31.8-35.4); Mean Corpuscular Hemoglobin 32.1 pg (27.0-31.2); Mean Platelet Volume 7.5 fl (7.4-10.4); Monocytes # 0.6 K/mm3 (0.1-1.0); Monocytes % 7.3 % (1.7-9.3); Neutrophils % 62.8 % (37.0-80.0); Platelet Count 422 K/mm3 (142-424); Red Blood Count 3.34 M/mm3 (4.60-6.20); Red Cell Distribution Width 15.2 % (11.5-17.5); White Blood Count 7.9 K/mm3 (4.8-10.8)
[2020-03-06 15:50] LABS: Activated Partial Thrombo Time 36.4 seconds (23.6-34.0)
--- NOTE | 2020-03-06 17:44 | PC.NURSE ---
1730 Pt is s/p port-a-cath placement in left chest, was accessed by Ashley Devine RN in med-surg dept. and tolerated well by pt. Pt has dozed in intervals. Pt has c/o pain around site of port-a-cath and received PRN medication. Telfa and tegaderm dressing to site without any drainage, no s/s infection. Pt is alert & oriented x4, vss. Bed locked and in lowest position with side rails up x2. Pt is sitting up in bed at this time eating dinner with no concerns voiced.
--- NOTE | 2020-03-06 20:06 | PC.NURSE ---
dr. hurley at bedside
--- NOTE | 2020-03-06 22:15 | HMH.HP ---
*Admission Date: 03/06/20 *Chief complaint: leg swelling *History of present illness: this pt well known to me presented to op surg for port placement to begin chemo for his pancreatic cancer -tient is a 49-year-old male referred by Dr. East after being seen yesterday for venous port placement. He had presented last month with malignant pleural effusion c/w adneocarcinoma. Immunostains are consistent with pancreatic primary. He had a left sided pleurx drain placed last week at . He states they removed 1900 ml. He states that he does have some residual shortness of air. Plan is to initiate chemotherapy in 1 to 2 weeks. He was sent for surgical consultation for port placement. Of note, the patient has a history of kidney transplant and previously underwent hemodialysis through right internal jugular vein catheters. Plan was for placement of hopeful left-sided PowerPort. On the morning of the planned procedure upon presentation patient was complaining of left lower extremity discomfort and significant soreness in his left calf. He therefore underwent urgent venous Doppler in the preoperative area and was found to have acute left lower extremity DVTs. Plan was made to proceed with port placement prior to initiation of anticoagulation. However, the patient was given therapeutic dose of Lovenox prior to procedure.pt was admitted for anticougation [facility] History I have reviewed the patient's past medical history: Yes Medical History: Reports:: Cancer (lung/ pancreatic), Gastroesophageal Reflux Disease(GERD), Heart Murmur, Hyperlipidemia, Hypertension, Nephritis, Renal Disease Denies:: Diabetes Mellitus Type 1, Diabetes Mellitus Type 2, Internal Pacemaker, MRSA, Seizures *Have you ever received a pneumonia vaccine?: Yes *Have you received a flu vaccine this season?: Yes Other Medical History: Reports: Fibromyalgia, Thyroid Disease. Denies: Blood Transfusion Reaction Anesthesia experience/problems:: none Other Surgeries: Yes: Colonoscopy, Hernia Repair, Organ Transplant, Other. No: Pacemaker Amputation: No Fractures: No - *Social History Last grade of school completed: High school graduate Smoking Status: Current every day smoker Tobacco Type: cigarettes # Packs/Day (cigarettes): 1 Alcohol Intake: never Substance Use Type: denies use *Occupational Status:: disabled Housing: house Household Members: significant other *Travel in the last 8 weeks: None Family Hx:: Coronary Artery Disease, Heart Attack, Hyperlipidemia, Hypertension, Stroke Review of Systems - Review of Systems Review of systems:: pertinent systems reviewed and negative unless documented below - Constitutional Denies headache(s) - Eyes Denies change in vision - ENT Denies sore throat - *Cardiovascular Denies chest pain - *Respiratory Denies cough - *Gastrointestinal Denies abdominal pain - *Genitourinary Denies blood in urine - *Musculoskeletal Denies joint pain, Denies back pain - Integumentary/Breasts Denies rash - *Neurologic Denies seizure-like activity, Denies headache(s) - Psychiatric Denies anxiety Meds Home Medications Medication Instructions Recorded Confirmed Type azathioprine 50 mg tablet 100 mg PO DAILY tab 03/13/17 03/06/20 History albuterol sulfate 90 mcg/actuation 1 inh INHALATION QID PRN #8.5 g 02/02/20 03/06/20 Rx aerosol inhaler Amlodipine Besylate 5 mg PO DAILY 02/06/20 03/06/20 History Gabapentin 600 mg PO QID 02/06/20 03/06/20 History Pravastatin Sodium [Pravachol] 40 mg PO HS 02/06/20 03/06/20 History Valsartan [Valsartan 80mg 80 mg PO BID 02/06/20 03/06/20 History Tablets] oxycodone 10 mg tablet 10 mg PO Q4H PRN 21 Days #126 tab 02/22/20 03/06/20 Rx Tacrolimus 2 mg PO BID 03/06/20 03/06/20 History Trazodone HCl [Desyrel 50mg tablet] 25 mg PO HS 03/06/20 03/06/20 History Allergies Allergy/AdvReac Type Severity Reaction Status Date / Time erythromycin base Allergy Intermediate Verified 03/02/20 1
[2020-03-06 22:46] LABS: Activated Partial Thrombo Time 47.6 seconds (23.6-34.0)
--- NOTE | 2020-03-06 22:50 | PC.NURSE ---
YADY FROM PHARMACY CALLED AT THIS TIME, PTT REPORTED BY LAB. ORDERS TO INCREASE HEPARIN FOR 27MLS/HR. R/V
[2020-03-07] VITALS: BP 142/88; PULSE 77; RESP 21; TEMP 36.4; O2SAT 92
[2020-03-07 04:00] VITALS: BP 148/86; PULSE 74; RESP 21; TEMP 37.1; O2SAT 90
--- NOTE | 2020-03-07 04:18 | PC.NURSE ---
PT HAS RESTED INTERMITTENTLY THIS SHIFT. VITAL SIGNS STABLE. PT WITH GENERALIZED PAIN COMPLAINTS, CONTROLLED WITH PRN PAIN MEDICATIONS. PT A&O X 4, COOPERATIVE WITH CARE. HEART RATE REGULAR, NO EDEMA. LUNGS SOUNDS CLEAR, PT WITH NON-PRODUCTIVE COUGH. 02 AT 2L/NC. C/O LEFT CALF TENDERNESS, UNCHANGED FROM EARLIER ASSESSMENT, PT WITH KNOWN DVT. DRESSING TO LEFT CHEST PORTACATH C/D/I. DRESSING TO LEFT CHEST PLEURX DRAIN C/D/I. IV TO RIGHT WRIST PATENT, PORTACATH REMAINS ACCESSED. VOIDS PER URINAL, CLEAR YELLOW URINE NOTED. CALL LIGHT WITHIN REACH. WILL CONTINUE TO MONITOR.
[2020-03-07 05:08] VITALS: BMI 22.9
--- NOTE | 2020-03-07 07:55 | P.PN_ITS ---
Subjective Narrative: Venous Doppler performed preoperatively due to complaints of left lower extremity pain yesterday revealed findings of left common femoral vein, superficial femoral vein, peroneal vein DVT along with SVT in the lesser saphenous vein. Overall patient feels better. He has less discomfort in his left lower extremity. His Port-A-Cath has been accessed and is being used. He has some minor soreness at the surgical site. Interestingly he does have some paresthesia symptoms on his left thigh. He does wonder if his Pleurx drain needs drained. Progress Note: A&P (1) DVT (deep venous thrombosis) Status: Acute (2) Pancreatic adenocarcinoma Status: Acute (3) IgA nephropathy Status: Chronic (4) Tobacco use Problem details: remove Status: Acute (5) Chronic pain Status: Chronic (6) Hypertension Status: Chronic Assessment and Plan for All Diagnoses:: Continue medical management of acute DVT. I did inform him that post procedure chest x-ray yesterday revealed no evidence of any significant pleural fluid but there was some pleural thickening. Exam Vital signs and Labs for Last 24 Hours: Temp Pulse Resp BP Pulse Ox 98.7 F 74 21 148/86 H 90 L 03/07/20 04:00 03/07/20 04:00 03/07/20 04:00 03/07/20 04:00 03/07/20 04:00 Laboratory Results - last 24 hr 03/06/20 15:15: APTT 36.4 H 03/06/20 15:15: WBC 7.9, RBC 3.34 L, Hgb 10.7 L, Hct 32.1 L, MCV 96.0 H, MCH 32.1 H, MCHC 33.4, RDW 15.2, Plt Count 422, MPV 7.5, Neut % (Auto) 62.8, Lymph % (Auto) 25.7, Dickinson % (Auto) 7.3, Eos % (Auto) 3.9, Baso % (Auto) 0.3, Neut # (Auto) 5.0, Lymph # (Auto) 2.0, Dickinson # (Auto) 0.6, Eos # (Auto) 0.3, Baso # (Auto) 0.0 03/06/20 21:55: APTT 47.6 H D I & O for Last 24 hours: Intake & Output 03/04/20 03/05/20 03/06/2020/21 11:59 11:59 11:59 11:59 Intake Total 960 / 960 Output Total 1460 / 1460 Balance -500 / -500 Weight 160 lb 2 oz - *Routine Extremities Exam Comments: No appreciable lower extremity swelling.
[2020-03-07 08:00] VITALS: BP 144/88; PULSE 88; RESP 18; TEMP 36.8; O2SAT 94
--- NOTE | 2020-03-07 09:01 | HMH.DCSUM ---
General - General Admission date:: 03/06/20 Discharge date: 03/07/20 HPI HPI: this pt well known to me presented to op surg for port placement to begin chemo for his pancreatic cancer -tient is a 49-year-old male referred by Dr. East after being seen yesterday for venous port placement. He had presented last month with malignant pleural effusion c/w adneocarcinoma. Immunostains are consistent with pancreatic primary. He had a left sided pleurx drain placed last week at . He states they removed 1900 ml. He states that he does have some residual shortness of air. Plan is to initiate chemotherapy in 1 to 2 weeks. He was sent for surgical consultation for port placement. Of note, the patient has a history of kidney transplant and previously underwent hemodialysis through right internal jugular vein catheters. Plan was for placement of hopeful left-sided PowerPort. On the morning of the planned procedure upon presentation patient was complaining of left lower extremity discomfort and significant soreness in his left calf. He therefore underwent urgent venous Doppler in the preoperative area and was found to have acute left lower extremity DVTs. Plan was made to proceed with port placement prior to initiation of anticoagulation. However, the patient was given therapeutic dose of Lovenox prior to procedure.pt was admitted for anticougation Hospital Course Hospital Course: this pt well known to me presented to op surg for port placement to begin chemo for his pancreatic cancer -tient is a 49-year-old male referred by Dr. East after being seen yesterday for venous port placement. He had presented last month with malignant pleural effusion c/w adneocarcinoma. Immunostains are consistent with pancreatic primary. He had a left sided pleurx drain placed last week at . He states they removed 1900 ml. He states that he does have some residual shortness of air. Plan is to initiate chemotherapy in 1 to 2 weeks. He was sent for surgical consultation for port placement. Of note, the patient has a history of kidney transplant and previously underwent hemodialysis through right internal jugular vein catheters. Plan was for placement of hopeful left-sided PowerPort. On the morning of the planned procedure upon presentation patient was complaining of left lower extremity discomfort and significant soreness in his left calf. He therefore underwent urgent venous Doppler in the preoperative area and was found to have acute left lower extremity DVTs. Plan was made to proceed with port placement prior to initiation of anticoagulation. However, the patient was given therapeutic dose of Lovenox prior to procedure.pt was admitted for anticougation Port-A-Cath was placed in left upper chest area and has been accessed and used after placement verification 03/06/20 BLE Doppler: Findings LLL + DVT in CFV, SFV, Peroneal veins. SVT in LSV. Visible thrombus vessels partially compress. Dr Simpson notified. Conclusion LLL + DVT in CFV, SFV, Peroneal veins. SVT in LSV. Visible thrombus vessels partially compress. Dr Simpson notified. Electronically signed by : Steven Rizvi 03/06/20 CXR: FINDINGS: Left upper extremity MediPort catheter has been placed. The tip is in good position in the region of the superior vena cava. There is no evidence of pneumothorax. Left-sided pleural drain remains in place with small left effusion. There is left apical pleural thickening and increased density in the mid and lower lung zone on the left which may be related to layering effusion, pleural thickening or fluid within the fissure as seen on previous CT scan. Right lung is clear. No acute bony abnormalities. IMPRESSION: 1. Status post left subclavian Port-A-Cath placement with tip in the region the SVC without evidence of pneumothorax. 2. Left-sided pleural drain with pleural thickening and increased density along the left lower chest. Dictat
[2020-03-07 09:12] LABS: Anion Gap 11.6 mEq/L (5-15); Blood Urea Nitrogen 21 mg/dl (9-20); Calcium 9.7 mg/dl (8.4-10.2); Carbon Dioxide 26 mmol/L (22.0-30.0); Chloride 104 mmol/L (98-107); Creatinine Clearance Estimated 75 mL/min (50-200); Estimated Glomerular Filt Rate 64 ml/min (>60); GFR (African American) 77 ML/MIN (>60); Glucose 127 mg/dl (74-100); Potassium 4.6 mmoL/L (3.5-5.1); Sodium 137 mmol/L (136-145)
--- NOTE | 2020-03-07 09:21 | PC.NURSE ---
Heparin drip stopped at this time.
--- NOTE | 2020-03-07 12:30 | PC.NURSE ---
Discharge instructions given, questions encouraged and answered. Pt. awaiting family member arrival for transport home.
--- NOTE | 2020-03-07 12:45 | PC.NURSE ---
Portacath incision site noted to have moderate amount of bleeding, Pressure held to incision site for 2 minutes. 4X4 with [address]erm in [address]. pt. educated on bleeding measures. Pt. v/u.
--- NOTE | 2020-03-07 13:05 | PC.NURSE ---
Pt. left via wheelchair.
== END 2020-03-07 13:05 | disposition home or self-care (01) ==
LOC: 2ND 11:42
PROVIDERS: Admitting Provider Surgery; PCP Emergency Medicine; Visit Provider Emergency Medicine
PROC: 0JH63WZ Insertion of Totally Implantable Vascular Access Device into Chest Subcutaneous Tissue and Fascia, Percutaneous Approach (ICD-10-PCS; CPT 36561; principal; 2020-03-06 11:00)
DX: I82.492 Acute embolism and thrombosis of other specified deep vein of left lower extremity (principal); I82.452 Acute embolism and thrombosis of left peroneal vein; I82.412 Acute embolism and thrombosis of left femoral vein; C25.9 Malignant neoplasm of pancreas, unspecified; C34.90 Malignant neoplasm of unspecified part of unspecified bronchus or lung; J91.0 Malignant pleural effusion; Z72.0 Tobacco use; Z88.1 Allergy status to other antibiotic agents; Z88.8 Allergy status to other drugs, medicaments and biological substances
CPT/HCPCS: 36561; 71045; 76000; 80048; 85025; 85730; 93971; 96372; 96374; C1788; G0378; J1642

== ENCOUNTER 2020-03-22 10:50 | Outpatient (CLI) | payer MEDICARE, OTHER, SELFPAY ==
[2020-03-22 10:58] VITALS: BMI 21.9
[2020-03-22 11:26] LABS: Basophils % 0.6 % (0.1-2.0); Eosinophils # 0.5 K/mm3 (0.0-0.4); Eosinophils % 6.6 % (0.1-12.0); Hematocrit 31.1 % (42.0-52.0); Hemoglobin 9.9 g/dL (14.1-18.0); Lymphocytes # 1.5 K/mm3 (0.7-4.5); Lymphocytes % 20.8 % (10-50); Mean Corpuscular HGB Conc 31.8 g/dL (31.8-35.4); Mean Corpuscular Hemoglobin 30.5 pg (27.0-31.2); Mean Corpuscular Volume 96.1 fl (80-94); Mean Platelet Volume 7.8 fl (7.4-10.4); Monocytes # 0.5 K/mm3 (0.1-1.0); Monocytes % 6.8 % (1.7-9.3); Neutrophils # 4.6 K/mm3 (1.8-7.8); Neutrophils % 65.2 % (37.0-80.0); Platelet Count 464 K/mm3 (142-424); Red Blood Count 3.24 M/mm3 (4.60-6.20); Red Cell Distribution Width 14.8 % (11.5-17.5)
[2020-03-22 11:37] LABS: Chloride 108 mmol/L (98-107); Potassium 4.4 mmoL/L (3.5-5.1); Sodium 138 mmol/L (136-145)
[2020-03-22 11:40] LABS: Alanine Aminotransferase 9 U/L (12-78); Albumin Level 3.6 g/dl (3.5-5.0); Alkaline Phosphatase 106 U/L (38-126); Anion Gap 11.4 mEq/L (5-15); Aspartate Amino Transferase 18 U/L (17-59); Bilirubin,Total 0.3 mg/dl (0.2-1.3); Blood Urea Nitrogen 31 mg/dl (9-20); Carbon Dioxide 23 mmol/L (22.0-30.0); Creatinine Clearance Estimated 46 mL/min (50-200); Estimated Glomerular Filt Rate 38 ml/min (>60); GFR (African American) 45 ML/MIN (>60); Globulin 3.6 g/dL (1.3-3.2); Glucose 131 mg/dl (74-100); Total Protein,Serum 7.2 g/dl (6.3-8.2)
[2020-03-22 12:55] VITALS: BP 118/56; PULSE 80; RESP 18; O2SAT 95
[2020-03-22 13:10] VITALS: BP 104/57; PULSE 78; RESP 18
[2020-03-22 13:25] VITALS: BP 111/62; PULSE 78; RESP 18
[2020-03-22 13:35] VITALS: RESP 18
[2020-03-22 13:48] VITALS: BP 96/60; PULSE 71; RESP 18
[2020-03-22 14:10] VITALS: BP 102/61; PULSE 72; RESP 18
== END 2020-03-22 14:10 | disposition home or self-care (01) ==
LOC: INF 10:57
PROVIDERS: Visit Provider Internal Medicine Medical Oncology
DX: C34.90 Malignant neoplasm of unspecified part of unspecified bronchus or lung (principal); C25.9 Malignant neoplasm of pancreas, unspecified; Z51.11 Encounter for antineoplastic chemotherapy
CPT/HCPCS: 80053; 85025; 96411; 96413; J1642; J8501; J9045; J9305; Q0166

== ENCOUNTER 2020-03-30 11:53 | Outpatient (CLI) | payer MEDICARE, OTHER, SELFPAY ==
[2020-03-30 11:56] VITALS: BMI 21.9
[2020-03-30 12:13] LABS: Basophils % 0.3 % (0.1-2.0); Eosinophils # 0.4 K/mm3 (0.0-0.4); Eosinophils % 7.2 % (0.1-12.0); Hematocrit 28.9 % (42.0-52.0); Hemoglobin 9.3 g/dL (14.1-18.0); Lymphocytes # 0.9 K/mm3 (0.7-4.5); Lymphocytes % 17.5 % (10-50); Mean Corpuscular HGB Conc 32.3 g/dL (31.8-35.4); Mean Corpuscular Hemoglobin 30.3 pg (27.0-31.2); Mean Corpuscular Volume 93.9 fl (80-94); Mean Platelet Volume 8.7 fl (7.4-10.4); Monocytes # 0.1 K/mm3 (0.1-1.0); Monocytes % 1.6 % (1.7-9.3); Neutrophils # 3.8 K/mm3 (1.8-7.8); Neutrophils % 73.4 % (37.0-80.0); Platelet Count 137 K/mm3 (142-424); Red Blood Count 3.07 M/mm3 (4.60-6.20); Red Cell Distribution Width 14.7 % (11.5-17.5); White Blood Count 5.2 K/mm3 (4.8-10.8)
[2020-03-30 12:20] VITALS: BP 157/98; PULSE 72; RESP 18; TEMP 36.4; O2SAT 99
[2020-03-30 12:21] LABS: Alanine Aminotransferase 25 U/L (12-78); Albumin Level 3.5 g/dl (3.5-5.0); Albumin/Globulin Ratio 1.1 (1.1-1.8); Alkaline Phosphatase 87 U/L (38-126); Aspartate Amino Transferase 20 U/L (17-59); Bilirubin,Total 0.4 mg/dl (0.2-1.3); Blood Urea Nitrogen 37 mg/dl (9-20); Carbon Dioxide 21 mmol/L (22.0-30.0); Chloride 110 mmol/L (98-107); Creatinine Clearance Estimated 68 mL/min (50-200); Estimated Glomerular Filt Rate 58 ml/min (>60); GFR (African American) 70 ML/MIN (>60); Globulin 3.2 g/dL (1.3-3.2); Glucose 144 mg/dl (74-100); Sodium 136 mmol/L (136-145); Total Protein,Serum 6.7 g/dl (6.3-8.2)
[2020-03-30 13:35] VITALS: BP 158/97; PULSE 82; RESP 18
== END 2020-03-30 13:35 | disposition home or self-care (01) ==
LOC: INF 11:53
PROVIDERS: Visit Provider Internal Medicine Medical Oncology
DX: Z51.11 Encounter for antineoplastic chemotherapy (principal); C34.90 Malignant neoplasm of unspecified part of unspecified bronchus or lung; C25.9 Malignant neoplasm of pancreas, unspecified
CPT/HCPCS: 80053; 85025; 96360; J1642; J2405

== ENCOUNTER 2020-04-13 12:17 | Outpatient (CLI) | payer MEDICARE, OTHER, SELFPAY ==
[2020-04-13 12:20] VITALS: BMI 21.9; BMI 49.1
[2020-04-13 12:45] LABS: Chloride 104 mmol/L (98-107); Sodium 136 mmol/L (136-145)
[2020-04-13 12:46] LABS: Potassium 4.6 mmoL/L (3.5-5.1)
[2020-04-13 12:48] LABS: Alanine Aminotransferase 12 U/L (12-78); Albumin Level 3.5 g/dl (3.5-5.0); Albumin/Globulin Ratio 1.1 (1.1-1.8); Alkaline Phosphatase 91 U/L (38-126); Anion Gap 10.6 mEq/L (5-15); Aspartate Amino Transferase 17 U/L (17-59); Bilirubin,Total 0.2 mg/dl (0.2-1.3); Blood Urea Nitrogen 24 mg/dl (9-20); Carbon Dioxide 26 mmol/L (22.0-30.0); Creatinine Clearance Estimated 63 mL/min (50-200); Estimated Glomerular Filt Rate 53 ml/min (>60); GFR (African American) 65 ML/MIN (>60); Globulin 3.2 g/dL (1.3-3.2); Total Protein,Serum 6.7 g/dl (6.3-8.2)
[2020-04-13 12:49] LABS: Calcium 9.3 mg/dl (8.4-10.2); Glucose 120 mg/dl (74-100)
[2020-04-13 13:07] LABS: Basophils % 0.2 % (0.1-2.0); Eosinophils # 0.1 K/mm3 (0.0-0.4); Eosinophils % 1.2 % (0.1-12.0); Lymphocytes # 1.4 K/mm3 (0.7-4.5); Lymphocytes % 30.8 % (10-50); Mean Corpuscular HGB Conc 32.9 g/dL (31.8-35.4); Mean Corpuscular Hemoglobin 30.9 pg (27.0-31.2); Mean Corpuscular Volume 93.9 fl (80-94); Mean Platelet Volume 8.8 fl (7.4-10.4); Monocytes # 0.7 K/mm3 (0.1-1.0); Monocytes % 14.4 % (1.7-9.3); Neutrophils # 2.4 K/mm3 (1.8-7.8); Neutrophils % 53.4 % (37.0-80.0); Platelet Count 712 K/mm3 (142-424); Red Blood Count 2.28 M/mm3 (4.60-6.20); Red Cell Distribution Width 19.4 % (11.5-17.5); White Blood Count 4.6 K/mm3 (4.8-10.8)
[2020-04-13 13:08] LABS: Hematocrit 21.4 % (42.0-52.0)
== END 2020-04-13 13:50 | disposition home or self-care (01) ==
LOC: INF 12:17
PROVIDERS: Visit Provider Internal Medicine Medical Oncology
DX: C25.9 Malignant neoplasm of pancreas, unspecified (principal); Z45.2 Encounter for adjustment and management of vascular access device
CPT/HCPCS: 80053; 85025; 86850; J1642

== ENCOUNTER → 2020-04-14 08:03 | Outpatient (CLI) | payer MEDICARE, OTHER, SELFPAY ==
[2020-04-14] VITALS (21 sets, daily range): BP systolic 111–140; BP diastolic 66–88; PULSE 75–86; RESP 16; TEMP 36.7–36.9; O2SAT 97–99; BMI 21.4
[2020-04-14 15:20] LABS: Hematocrit 27.5 % (42.0-52.0); Hemoglobin 8.9 g/dL (14.1-18.0)
== END ==
PROVIDERS: PCP Emergency Medicine; Visit Provider Internal Medicine Medical Oncology
DX: D64.9 Anemia, unspecified (principal)
CPT/HCPCS: 36430; 85014; 85018; J1642; P9016

== ENCOUNTER 2020-04-26 12:30 | Outpatient (CLI) | payer MEDICARE, OTHER, SELFPAY ==
[2020-04-26 12:30] VITALS: BMI 21.3
[2020-04-26 12:47] LABS: Basophils # 0.1 K/mm3 (0-0.2); Basophils % 0.5 % (0.1-2.0); Eosinophils # 0.1 K/mm3 (0.0-0.4); Eosinophils % 0.4 % (0.1-12.0); Hematocrit 33.2 % (42.0-52.0); Hemoglobin 10.4 g/dL (14.1-18.0); Lymphocytes # 2.2 K/mm3 (0.7-4.5); Mean Corpuscular HGB Conc 31.5 g/dL (31.8-35.4); Mean Corpuscular Hemoglobin 31.5 pg (27.0-31.2); Mean Corpuscular Volume 100.1 fl (80-94); Mean Platelet Volume 7.3 fl (7.4-10.4); Monocytes # 1.3 K/mm3 (0.1-1.0); Monocytes % 11.7 % (1.7-9.3); Neutrophils # 7.3 K/mm3 (1.8-7.8); Neutrophils % 67.4 % (37.0-80.0); Platelet Count 530 K/mm3 (142-424); Red Blood Count 3.31 M/mm3 (4.60-6.20); Red Cell Distribution Width 16.8 % (11.5-17.5); White Blood Count 10.8 K/mm3 (4.8-10.8)
[2020-04-26 12:56] LABS: Chloride 106 mmol/L (98-107); Potassium 4.9 mmoL/L (3.5-5.1); Sodium 137 mmol/L (136-145)
[2020-04-26 12:58] LABS: Blood Urea Nitrogen 31 mg/dl (9-20); Creatinine Clearance Estimated 65 mL/min (50-200); Estimated Glomerular Filt Rate 58 ml/min (>60); GFR (African American) 70 ML/MIN (>60)
[2020-04-26 12:59] LABS: Alanine Aminotransferase 8 U/L (12-78); Albumin Level 3.6 g/dl (3.5-5.0); Alkaline Phosphatase 106 U/L (38-126); Anion Gap 12.9 mEq/L (5-15); Aspartate Amino Transferase 18 U/L (17-59); Bilirubin,Total 0.2 mg/dl (0.2-1.3); Carbon Dioxide 23 mmol/L (22.0-30.0); Globulin 3.7 g/dL (1.3-3.2); Glucose 129 mg/dl (74-100); Total Protein,Serum 7.3 g/dl (6.3-8.2)
[2020-04-26 13:53] VITALS: BP 112/70; PULSE 88; RESP 20; TEMP 36.6; O2SAT 98
[2020-04-26 14:18] VITALS: BP 113/63; PULSE 89; RESP 18; O2SAT 98
[2020-04-26 14:40] VITALS: BP 100/61; PULSE 72; RESP 18; O2SAT 98
[2020-04-26 15:10] VITALS: BP 110/64; PULSE 84; RESP 18; O2SAT 97
== END 2020-04-26 15:15 | disposition home or self-care (01) ==
LOC: INF 12:30
PROVIDERS: Visit Provider Internal Medicine Medical Oncology
DX: Z51.11 Encounter for antineoplastic chemotherapy (principal); C34.90 Malignant neoplasm of unspecified part of unspecified bronchus or lung
CPT/HCPCS: 80053; 85025; 96411; 96413; J1642; J9045; J9305; Q0166

== ENCOUNTER 2020-05-01 12:39 | Outpatient (CLI) | payer MEDICARE, OTHER, SELFPAY ==
[2020-05-01 12:39] VITALS: BMI 21.9
[2020-05-01 12:50] VITALS: BP 108/65; PULSE 81; RESP 18; TEMP 36.6; O2SAT 98
[2020-05-01 13:00] LABS: Eosinophils # 0.2 K/mm3 (0.0-0.4); Eosinophils % 1.7 % (0.1-12.0); Hematocrit 31.4 % (42.0-52.0); Hemoglobin 10.3 g/dL (14.1-18.0); Lymphocytes # 1.4 K/mm3 (0.7-4.5); Lymphocytes % 14.1 % (10-50); Mean Corpuscular HGB Conc 32.9 g/dL (31.8-35.4); Mean Corpuscular Hemoglobin 31.4 pg (27.0-31.2); Mean Corpuscular Volume 95.4 fl (80-94); Mean Platelet Volume 8.6 fl (7.4-10.4); Monocytes # 0.1 K/mm3 (0.1-1.0); Monocytes % 1.3 % (1.7-9.3); Neutrophils # 8.5 K/mm3 (1.8-7.8); Neutrophils % 82.9 % (37.0-80.0); Platelet Count 355 K/mm3 (142-424); Red Blood Count 3.29 M/mm3 (4.60-6.20); Red Cell Distribution Width 16.3 % (11.5-17.5); White Blood Count 10.2 K/mm3 (4.8-10.8)
[2020-05-01 13:04] LABS: Chloride 106 mmol/L (98-107); Sodium 135 mmol/L (136-145)
[2020-05-01 13:05] LABS: Potassium 5.2 mmoL/L (3.5-5.1)
[2020-05-01 13:07] LABS: Alanine Aminotransferase 34 U/L (12-78); Albumin Level 3.5 g/dl (3.5-5.0); Albumin/Globulin Ratio 1.1 (1.1-1.8); Alkaline Phosphatase 90 U/L (38-126); Anion Gap 11.2 mEq/L (5-15); Aspartate Amino Transferase 27 U/L (17-59); Bilirubin,Total 0.3 mg/dl (0.2-1.3); Blood Urea Nitrogen 40 mg/dl (9-20); Calcium 9.6 mg/dl (8.4-10.2); Carbon Dioxide 23 mmol/L (22.0-30.0); Creatinine Clearance Estimated 79 mL/min (50-200); Estimated Glomerular Filt Rate 70 ml/min (>60); GFR (African American) 85 ML/MIN (>60); Globulin 3.2 g/dL (1.3-3.2); Glucose 140 mg/dl (74-100); Total Protein,Serum 6.7 g/dl (6.3-8.2)
[2020-05-01 14:00] VITALS: BP 135/80; PULSE 75; RESP 18
== END 2020-05-01 14:00 | disposition home or self-care (01) ==
LOC: INF 12:40
PROVIDERS: PCP Internal Medicine Medical Oncology; Visit Provider Internal Medicine Medical Oncology
DX: C34.90 Malignant neoplasm of unspecified part of unspecified bronchus or lung (principal)
CPT/HCPCS: 80053; 85025; 96360; J1642

== ENCOUNTER → 2020-05-16 09:56 | Outpatient (CLI) | payer MEDICARE, OTHER, SELFPAY ==
--- NOTE | 2020-05-16 10:00 | CT_ITS ---
PROCEDURE: CT CHEST WO CON CLINICAL INDICATION: LUNG CA COMPARISON: CT CT CHEST WO CON from 02/27/2020 TECHNIQUE: Axial images obtained with sagittal and coronal reformats. All CT scans at the facility use one or more dose reduction, viz: automated exposure control, ma/kV adjustment per patient size (including targeted exams where dose is matched to indication, i.e. head), or iterative reconstruction technique. FINDINGS: HEART AND MEDIASTINAL STRUCTURES: Left subclavian Port-A-Cath with its tip in the superior vena cava is noted. The heart size is normal. Atherosclerotic vascular calcification of the thoracic aorta and the coronary arteries are noted. There are few nodules noted in the left peribronchial region measuring up to 1 centimeter, demonstrates decrease in size compared to prior study. The right peribronchial lymph node measuring 1.2 times 0.6 centimeters is unchanged. No other significant lymphadenopathy within the limitations of unenhanced study. LUNGS AND PLEURAL SPACES: There is a spiculated lesion noted in the left lower lobe with pleural tethering measuring 1.2 x 1.5 centimeters. Minor subsegmental tree-in-bud appearance is noted. Pleural nodularity with effusion in the left hemithorax is again noted, demonstrates decrease in size compared to the prior study. Calcified granulomas noted in the left lower lobe. Minor subsegmental atelectasis noted in the lingula. Minor atelectasis in the right lower lobe. Centrilobular emphysematous changes are noted bilaterally. No focal consolidation or pneumothorax. Left-sided chest drain is noted. BONY STRUCTURES: Minor degenerative changes of the visualized thoracic spine. UPPER ABDOMEN: Please see concurrent CT abdomen and pelvis report for abdominal findings. ADDITIONAL FINDINGS: Heterogeneous density of the left lobe of thyroid gland is unchanged. IMPRESSION: Spiculated density in the left lower lobe measuring 1.2 x 1.5 centimeters demonstrate no significant interval change compared to prior study allowing for technical differences. Decrease in the size of the left-sided pleural effusion. Pleural nodularity is again noted, unchanged. PET-CT may be useful in further evaluation. Dictated by: Aracelis Sanabria 05/16/2020 14:51 Aracelis Sanabria in [facility] 05/16/2020 14:51
--- NOTE | 2020-05-16 10:00 | CT_ITS ---
PROCEDURE: CT ABDOMEN PELVIS WO CON CLINICAL INDICATION: LUNG CA COMPARISON: CT CT ABDOMEN PELVIS WO CON from 02/27/2020 TECHNIQUE: Axial images obtained with sagittal and coronal reformats. All CT scans at the facility use one or more dose reduction, viz: automated exposure control, ma/kV adjustment per patient size (including targeted exams where dose is matched to indication, i.e. head), or iterative reconstruction technique. FINDINGS: LOWER THORAX: Please see concurrent CT chest report of the same date for thoracic findings. ABDOMEN & PELVIS: Evaluation of the upper abdominal solid viscera is limited due to lack of intravenous contrast. The liver, spleen, right adrenal gland and pancreas are unremarkable. Bulky left adrenal gland is noted without evidence of focal nodules within the limitations of unenhanced study. Atrophy kidneys bilaterally. Right lower quadrant transplant kidney is noted. Extensive atherosclerotic vascular calcification of the abdominal aorta and its branches. No significant retroperitoneal or mesenteric adenopathy. The large and small bowel loops demonstrate no focal wall thickening, obstruction or adjacent inflammatory changes. Minor degenerative changes of the visualized lumbar spine. IMPRESSION: Bilateral renal atrophy. Transplant kidney noted in the right lower quadrant. No acute intra-abdominal abnormality. Chronic findings as described above. Dictated by: Aracelis Sanabria 05/16/2020 14:58 Aracelis Sanabria in [facility] 05/16/2020 14:58
== END ==
PROVIDERS: PCP Emergency Medicine; Visit Provider Internal Medicine Medical Oncology
DX: C34.90 Malignant neoplasm of unspecified part of unspecified bronchus or lung (principal); Z03.89 Encounter for observation for other suspected diseases and conditions ruled out
CPT/HCPCS: 71250; 74176

== ENCOUNTER 2020-06-21 14:45 | Outpatient (CLI) | payer MEDICARE, OTHER, SELFPAY ==
[2020-06-21 14:52] VITALS: BMI 21.3
[2020-06-21 15:15] LABS: Basophils % 0.2 % (0.1-2.0); Eosinophils # 0.6 K/mm3 (0.0-0.4); Eosinophils % 5.3 % (0.1-12.0); Hemoglobin 9.9 g/dL (14.1-18.0); Lymphocytes # 1.6 K/mm3 (0.7-4.5); Lymphocytes % 15.5 % (10-50); Mean Corpuscular HGB Conc 32.1 g/dL (31.8-35.4); Mean Corpuscular Hemoglobin 30.8 pg (27.0-31.2); Mean Corpuscular Volume 95.8 fl (80-94); Mean Platelet Volume 8.8 fl (7.4-10.4); Monocytes # 0.8 K/mm3 (0.1-1.0); Monocytes % 7.1 % (1.7-9.3); Neutrophils # 7.6 K/mm3 (1.8-7.8); Neutrophils % 71.8 % (37.0-80.0); Platelet Count 343 K/mm3 (142-424); Red Blood Count 3.23 M/mm3 (4.60-6.20); Red Cell Distribution Width 17.2 % (11.5-17.5); White Blood Count 10.5 K/mm3 (4.8-10.8)
[2020-06-21 15:23] LABS: Alanine Aminotransferase 26 U/L (12-78); Albumin Level 3.8 g/dl (3.5-5.0); Albumin/Globulin Ratio 1.1 (1.1-1.8); Alkaline Phosphatase 95 U/L (38-126); Anion Gap 8.3 mEq/L (5-15); Aspartate Amino Transferase 147 U/L (17-59); Bilirubin,Total 0.2 mg/dl (0.2-1.3); Blood Urea Nitrogen 20 mg/dl (9-20); Calcium 9.8 mg/dl (8.4-10.2); Carbon Dioxide 27 mmol/L (22.0-30.0); Chloride 105 mmol/L (98-107); Creatinine Clearance Estimated 65 mL/min (50-200); Estimated Glomerular Filt Rate 58 ml/min (>60); GFR (African American) 70 ML/MIN (>60); Globulin 3.4 g/dL (1.3-3.2); Glucose 147 mg/dl (74-100); Potassium 4.3 mmoL/L (3.5-5.1); Sodium 136 mmol/L (136-145); Total Protein,Serum 7.2 g/dl (6.3-8.2)
== END 2020-06-21 16:09 | disposition home or self-care (01) ==
LOC: INF 14:51
PROVIDERS: Visit Provider Internal Medicine Medical Oncology
DX: Z45.2 Encounter for adjustment and management of vascular access device; C34.90 Malignant neoplasm of unspecified part of unspecified bronchus or lung
CPT/HCPCS: 80053; 85025; J1642

== ENCOUNTER → 2020-06-22 13:58 | Outpatient (CLI) | payer MEDICARE, OTHER, SELFPAY ==
--- NOTE | 2020-06-22 14:00 | XR_ITS ---
PROCEDURE: XR ACUTE ABDOMEN SERIES CLINICAL INDICATION: unable to use restroom Constipation weakness, history of lung cancer COMPARISON: CR XR CHEST PORTABLE from 03/06/[address] ABDOMEN PELVIS WO CON from 05/16/2020 FINDINGS: Left-sided MediPort catheter is present from left subclavian approach with tip in the region the SVC. Left apical pleural thickening is once again noted. Patchy density is present in the left perihilar region suspicious for pneumonia. There is a small left pleural effusion with left basilar atelectatic change. The right lung is clear. Upright and supine views of the abdomen demonstrates nonspecific nonobstructive bowel gas pattern. There is diffuse vascular calcification Other findings:None. IMPRESSION: 1. Persistent left apical pleural thickening. 2. Left perihilar infiltrate/pneumonia. 3. Nonspecific nonobstructive bowel gas pattern Dictated by: Steven Rizvi MD 06/22/2020 15:05 Steven Rizvi MD in [facility] 06/22/2020 15:05
== END ==
PROVIDERS: PCP Emergency Medicine; Visit Provider Emergency Medicine
DX: K59.00 Constipation, unspecified (principal); R33.9 Retention of urine, unspecified
CPT/HCPCS: 74021

== ENCOUNTER 2020-06-22 15:18 | Inpatient (IN) | payer MEDICARE, OTHER, SELFPAY ==
[2020-06-22] VITALS (8 sets, daily range): BP systolic 126–174; BP diastolic 80–104; PULSE 80–91; RESP 16–20; TEMP 36.8–36.9; O2SAT 98–100; BMI 21.7; BMI 21.2
--- NOTE | 2020-06-22 15:23 | HMH.EDGENADL ---
ED Disposition Clinical Impression: Intractable pain, Lung cancer Disposition: Admitted as Observation Condition on Discharge: Fair - Critical Care Critical Care Time: No Attestation: On , the high probability of a clinically significant, sudden or life threatening deterioration of the following system(s) required my full and direct attention, intervention and personal management. The time I documented below is in addition to time spent performing reported procedures but includes the following listed in this critical care notation. Medical Decision Making - Medical Records Medical records reviewed: Yes: I reviewed the patient's medical records. MR Comment: Reviewed office note from Dr. Mark from today. Reviewed oncology clinic note from Dr. East from yesterday. He has metastatic adenocarcinoma, suspected lung as primary source. Reviewed x-ray report from today, see below. - Pipo Inquiry Pt receiving controlled substance: Yes Pipo was queried for this patient: Yes Risks and benefits of using a controlled substance: were not discussed with pt by me Vital Signs: 06/22/20 15:21 06/22/20 15:47 06/22/20 16:00 Temperature 98.3 F Temperature Source Oral Pulse Rate 85 80 Pulse Rate [Right] 84 Respiratory Rate 16 18 Blood Pressure 174/101 H 147/104 H Blood Pressure [Right Arm] 174/100 H Blood Pressure Mean 116 118 Blood Pressure Mean [Right Arm] 124 Blood Pressure Source Blood Pressure Source [Right Arm] Automatic Cuff Blood Pressure Position Blood Pressure Position [Right Arm] Sitting 02 Sat by Pulse Oximetry 98 98 100 Oxygen Delivery Method Room Air 06/22/20 17:30 06/22/20 18:30 06/22/20 19:30 Temperature Temperature Source Pulse Rate 91 H 82 81 Pulse Rate [Right] Respiratory Rate 20 18 Blood Pressure 141/94 H 146/99 H 126/80 Blood Pressure [Right Arm] Blood Pressure Mean 109 Blood Pressure Mean [Right Arm] Blood Pressure Source Automatic Cuff Automatic Cuff Blood Pressure Source [Right Arm] Blood Pressure Position Sitting Sitting Blood Pressure Position [Right Arm] 02 Sat by Pulse Oximetry 99 99 98 Oxygen Delivery Method Room Air Room Air 06/22/20 20:16 06/22/20 20:17 Temperature 98.3 F Temperature Source Oral Pulse Rate 85 Pulse Rate [Right] Respiratory Rate 18 Blood Pressure 127/87 Blood Pressure [Right Arm] Blood Pressure Mean Blood Pressure Mean [Right Arm] Blood Pressure Source Automatic Cuff Blood Pressure Source [Right Arm] Blood Pressure Position Supine Blood Pressure Position [Right Arm] 02 Sat by Pulse Oximetry Oxygen Delivery Method Room Air Room Air - Lab Data Lab Results 06/22/20 15:45: WBC 14.2 H D, RBC 3.73 L, Hgb 11.6 L, Hct 36.3 L, MCV 97.5 H, MCH 31.1, MCHC 31.9, RDW 16.9, Plt Count 413, MPV 7.8, Neut % (Auto) 78.7, Lymph % (Auto) 12.2, [place] % (Auto) 6.3, Eos % (Auto) 2.5, Baso % (Auto) 0.3, Neut # (Auto) 11.2 H, Lymph # (Auto) 1.7, [place] # (Auto) 0.9, Eos # (Auto) 0.4, Baso # (Auto) 0.1 06/22/20 15:45: Sodium 137, Potassium 5.0, Chloride 102, Carbon Dioxide 26, Anion Gap 14.0, BUN 17, Creatinine 1.20, Estimated Creat Clear 72, Estimated GFR 64, Est GFR ( Amer) 77, Glucose 119 H, Calcium 10.7 H, Total Bilirubin 0.4, AST 93 H D, ALT 27, Alkaline Phosphatase 121, Total Protein 8.3 H, Albumin 4.3 D, Globulin 4.0 H, Albumin/Globulin Ratio 1.1, Amylase 55, Lipase 33 Result diagrams: 06/22/20 15:45 06/22/20 15:45 Orders (Tests/Meds): ED MEDICATIONS Discontinued Medications Generic Name Dose Route Start Last Admin Trade Name Abhayq PRN Reason Stop Dose Admin Hydromorphone HCl 1 mg 06/22/20 15:39 06/22/20 15:58 Hydromorphone 2mg/Ml Syringe IV 06/22/20 15:40 1 mg ONCE ONE Administration Hydromorphone HCl 1 mg 06/22/20 17:18 06/22/20 17:23 Hydromorphone 2mg/Ml Syringe IV 06/22/20 17:19 1 mg ONCE ONE Administration Hydromorphone HCl 1 mg 06/22/20 19:55 06/22
--- NOTE | 2020-06-22 15:48 | CT_ITS ---
PROCEDURE INFORMATION: Exam: CT Chest Without Contrast; Diagnostic Exam date and time: 06/22/2020 3:48 PM Age: 50 years old Clinical indication: Other: Lt shoulder pain; Prior surgery; Surgery date: 6+ months; Surgery type: Surgery for lung cancer; Additional info: Left shoulder pain, cancer, possible infiltrate le TECHNIQUE: Imaging protocol: Diagnostic computed tomography of the chest without contrast. Radiation optimization: All CT scans at this facility use at least one of these dose optimization techniques: automated exposure control; mA and/or kV adjustment per patient size (includes targeted exams where dose is matched to clinical indication); or iterative reconstruction. COMPARISON: CT CHEST WO CON 05/16/2020 10:11 AM FINDINGS: Tubes, catheters and devices: Left subclavian central venous line in satisfactory position. Lungs: Areas of subsegmental atelectasis throughout the left lung. 1.6 cm spiculated density in the superior aspect of the left lower lobe adjacent to the major fissure is unchanged. Nodularity along the left major fissure and in the left lung subpleural regions is also unchanged. Multiple benign calcified nodules in the left lower lobe are unchanged. Biapical emphysematous changes. Prominent interstitial lung markings at the left lung apex, unchanged. Pleural spaces: Irregular pleural thickening seen in the left hemithorax extending from the apex to the base. Minor left-sided pleural fluid. Heart: Unremarkable. No cardiomegaly. No pericardial effusion. Aorta: Mild atherosclerotic changes are seen within the thoracic aorta without evidence of aneurysm. Lymph nodes: Small calcified left hilar region lymph nodes. Gallbladder and bile ducts: Tiny gallstone. Kidneys and ureters: Severe bilateral renal atrophy. Bones/joints: Unremarkable. No acute fracture. Soft tissues: Unremarkable. IMPRESSION: No significant change in the above findings compared to the prior examination dated 05/16/2020.
[2020-06-22 16:13] LABS: Basophils # 0.1 K/mm3 (0-0.2); Basophils % 0.3 % (0.1-2.0); Eosinophils # 0.4 K/mm3 (0.0-0.4); Eosinophils % 2.5 % (0.1-12.0); Hematocrit 36.3 % (42.0-52.0); Hemoglobin 11.6 g/dL (14.1-18.0); Lymphocytes # 1.7 K/mm3 (0.7-4.5); Lymphocytes % 12.2 % (10-50); Mean Corpuscular HGB Conc 31.9 g/dL (31.8-35.4); Mean Corpuscular Hemoglobin 31.1 pg (27.0-31.2); Mean Corpuscular Volume 97.5 fl (80-94); Mean Platelet Volume 7.8 fl (7.4-10.4); Monocytes # 0.9 K/mm3 (0.1-1.0); Monocytes % 6.3 % (1.7-9.3); Neutrophils # 11.2 K/mm3 (1.8-7.8); Neutrophils % 78.7 % (37.0-80.0); Platelet Count 413 K/mm3 (142-424); Red Blood Count 3.73 M/mm3 (4.60-6.20); Red Cell Distribution Width 16.9 % (11.5-17.5); White Blood Count 14.2 K/mm3 (4.8-10.8)
[2020-06-22 16:14] LABS: Chloride 102 mmol/L (98-107)
[2020-06-22 16:15] LABS: Sodium 137 mmol/L (136-145)
[2020-06-22 16:17] LABS: Alanine Aminotransferase 27 U/L (12-78); Amylase 55 U/L (30-110); Aspartate Amino Transferase 93 U/L (17-59); Blood Urea Nitrogen 17 mg/dl (9-20); Creatinine Clearance Estimated 72 mL/min (50-200); Estimated Glomerular Filt Rate 64 ml/min (>60); GFR (African American) 77 ML/MIN (>60)
[2020-06-22 16:18] LABS: Albumin Level 4.3 g/dl (3.5-5.0); Albumin/Globulin Ratio 1.1 (1.1-1.8); Alkaline Phosphatase 121 U/L (38-126); Bilirubin,Total 0.4 mg/dl (0.2-1.3); Calcium 10.7 mg/dl (8.4-10.2); Carbon Dioxide 26 mmol/L (22.0-30.0); Glucose 119 mg/dl (74-100); Lipase 33 U/L (23-300); Total Protein,Serum 8.3 g/dl (6.3-8.2)
--- NOTE | 2020-06-22 16:38 | CT_ITS ---
PROCEDURE INFORMATION: Exam: CT Cervical Spine Without Contrast Exam date and time: 06/22/2020 4:38 PM Age: 50 years old Clinical indication: Neck pain TECHNIQUE: Imaging protocol: Computed tomography images of the cervical spine without contrast. Radiation optimization: All CT scans at this facility use at least one of these dose optimization techniques: automated exposure control; mA and/or kV adjustment per patient size (includes targeted exams where dose is matched to clinical indication); or iterative reconstruction. COMPARISON: No relevant prior studies available. FINDINGS: Bones/joints: No acute fracture. Normal alignment. Discs/Spinal canal/Neural foramina: Disc spaces are preserved. No significant disc protrusion. No severe spinal canal stenosis. No significant neural foraminal narrowing. Sinuses: Minor chronic left sphenoid sinus disease. Lungs: Lung apices are normal. Vasculature: Atherosclerotic calcification of the carotid bulb bilaterally. Soft tissues: Unremarkable. IMPRESSION: No acute findings within the cervical spine. Please refer to report from accompanying chest CT for additional information.
--- NOTE | 2020-06-22 17:56 | PC.NURSE ---
Pt eating food at this time
--- NOTE | 2020-06-22 20:06 | PC.NURSE ---
Attempted to call report at 1955. RN unavailable to take report at this time. Will attempt in 15 min.
--- NOTE | 2020-06-22 20:27 | PC.NURSE ---
dr mitchell returned call
--- NOTE | 2020-06-22 20:33 | PC.NURSE ---
PT ARRIVED TO FLOOR VIA W/C FROM ED W/STAFF AT 2032
--- NOTE | 2020-06-22 21:30 | PC.NURSE ---
Called Dr. Law to advise that the patient had eloped because he wanted to smoke. Patient returned to floor and was explained the smoking policy and instructed not to leave the floor. No new orders given.
[2020-06-23 04:00] VITALS: BP 145/93; PULSE 105; RESP 18; TEMP 37.2; O2SAT 98; BMI 22.6
[2020-06-23 08:00] VITALS: BP 137/89; PULSE 87; RESP 19; TEMP 36.8; O2SAT 97
--- NOTE | 2020-06-23 09:35 | HMH.HP ---
*Admission Date: 06/22/20 *Chief complaint: intractable pain *History of present illness: this pt presented to pcp office with intractable pain sec to known cancer santino in neck and lt sided chest pain - he was seen in the ed - s main complaints today are pain in his posterior left shoulder and neck which has been present for a year, but is now severe. States that he has chronic numbness in his left triceps and left thigh for 1 year. He says he is on pain medication, oxycodone 10mg, which is not helping and is only making him constipated. He says that he blew himself out last night with a suppository and laxatives. Had an abdominal x-ray today ordered by Dr. Mark. He says he has no appetite has not been eating or drinking for the past several days. Denies abdominal pain. Denies difficulty urinating. States he is able to ambulate. He has been receiving chemotherapy, but has not had any recently because he has been too sick to go. States he has a port that has hurt ever since it was put in. 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 pt admitted for ivf and meds and eval [facility] History I have reviewed the patient's past medical history: Yes Medical History: Reports:: Cancer, Deep Vein Thrombosis, Gastroesophageal Reflux Disease(GERD), Heart Murmur, Hyperlipidemia, Hypertension, Nephritis, Renal Disease Denies:: Diabetes Mellitus Type 1, Diabetes Mellitus Type 2, Internal Pacemaker, MRSA, Seizures *Have you ever received a pneumonia vaccine?: Yes *Have you received a flu vaccine this season?: Yes Other Medical History: Reports: Chemotherapy, Fibromyalgia, Thyroid Disease. Denies: Blood Transfusion Reaction Laterality Cases: Bilateral: Other Other Surgeries: Yes: Colonoscopy, Hernia Repair, Organ Transplant (rt kidney), Other. No: Pacemaker Amputation: No Fractures: No - *Social History Last grade of school completed: 11th or 12th Smoking Status: Heavy tobacco smoker Tobacco Type: cigarettes # Packs/Day (cigarettes): 2 Alcohol Intake: never Substance Use Type: denies use *Occupational Status:: disabled Housing: house Household Members: significant other *Travel in the last 8 weeks: None Family Hx:: Unable to obtain Review of Systems - Review of Systems Review of systems:: pertinent systems reviewed and negative unless documented below - Constitutional Reports weight loss, Denies fever(s) - Eyes Denies change in vision - ENT Denies sore throat - *Cardiovascular Denies chest pain - *Respiratory Denies cough - *Gastrointestinal Denies abdominal pain - *Genitourinary Denies blood in urine - *Musculoskeletal Reports joint pain, Reports neck pain - Integumentary/Breasts Denies rash - *Neurologic Reports numbness (left posterior upper arm and left anterior thigh), Denies localized weakness, Denies headache(s), Denies seizure-like activity - Psychiatric Reports anxiety Meds Home Medications Medication Instructions Recorded Confirmed Type albuterol sulfate 90 mcg/actuation 1 inh INHALATION QID PRN #8.5 g 02/02/20 06/22/20 Rx aerosol inhaler Valsartan [Valsartan 80mg 80 mg PO BID 02/06/20 06/22/20 History Tablets] Tacrolimus 2 mg PO BID 03/06/20 06/22/20 History Docusate Sodium 100 mg PO DAILY 04/14/20 06/22/20 History pravastatin 40 mg tablet 40 mg PO HS #90 tab 04/20/20 06/22/20 Rx Gabapentin 600 mg PO QID 06/22/20 06/22/20 History Sennosides/Docusate Sodium [Senna 1 - 2 tab PO BID 06/22/20 06/23/20 History Plus 8.6-50 mg Softgel] Amlodipine Besylate 5 mg PO DAILY 06/23/20 06/23/20 History Oxycodone HCl [Oxycodone (IR) 10mg 10 mg PO Q4HP PRN 06/23/20 06/23/20 History Tab] Rivaroxaban [Xarelto 20mg Tablet*] 20 mg PO QPMWM 06/23/20 06/23/20 History Allergies Allergy/AdvReac Type Severity Reaction Status Date / Time erythromycin base Allergy Intermediate Verified 06/22/20 14:53 sulfamethoxazole Allergy Mild Rash Verified 06/22/20 14:53 [From Bactrim] tr
--- NOTE | 2020-06-23 11:09 | PC.NURSE ---
Per MD Mark, pt is able to leave the floor if he wishes-pt just has to notify staff. Pt signed consent to leave floor and is in his chart.
--- NOTE | 2020-06-23 11:48 | PC.NURSE ---
Addendum entered by Meredith Lynn RN 06/23/20 12:13: Pt back to the floor at this time. Original Note: Tool Dresser notified of pt being gone for approx one hour at this point. Tool Dresser stated she will go look for pt.
--- NOTE | 2020-06-23 15:09 | P.CONPHA_ITS ---
[facility] Pharmacy VTE Monitoring - Patient Demographics Admission date: 06/23/20 Report Date: 06/23/20 Time: 15:09 Allergies/Adverse Reactions: Patient Allergies erythromycin base Allergy (Intermediate, Verified 06/22/20 14:53) sulfamethoxazole [From Bactrim] Allergy (Mild, Verified 06/22/20 14:53) Rash trimethoprim [From Bactrim] Allergy (Mild, Verified 06/22/20 14:53) Rash diltiazem [From Cardizem] Allergy (Verified 06/22/20 14:53) Blister Height: 1.8 m Weight: 73.17 kg Patient Problems: Current Active Problems Intractable pain (Acute) Lung cancer (Acute) - VTE Risk Labs: VTE Related Lab Results Hgb 11.6 g/dL (14.1-18.0) L 06/22/20 15:45 Hct 36.3 % (42.0-52.0) L 06/22/20 15:45 Plt Count 413 K/mm3 (142-424) 06/22/20 15:45 BUN 17 mg/dl (9-20) 06/22/20 15:45 Creatinine 1.20 mg/dl (0.66-1.25) 06/22/20 15:45 Estimated Creat Clear 72 mL/min (50-200) 06/22/20 15:45 - Prophylaxis Types of VTE Prophylaxis: TEDS Knee High (TAMMY HOSE ORDER PLACED) Location of Applied Device: Not Applicable
[2020-06-23 16:00] VITALS: BP 155/97; PULSE 88; RESP 20; TEMP 36.8; O2SAT 100
--- NOTE | 2020-06-23 18:43 | PC.NURSE ---
Pt has left the floor multiple times this shift. Pt has c/o left shoulder pain that radiates to his lower back x2 this shift. PRN pain meds administered w/ desirable effect. Pt has gotten more pleasant as the day has progressed. Pt still tolerating RA. Lung sounds diminished t/o. Pt refused nicotine patch this AM stating I will put it on tonight . No other acute changes or complaints at this time.
[2020-06-23 20:00] VITALS: BP 146/86; PULSE 83; RESP 20; TEMP 36.9; O2SAT 96
[2020-06-24 04:00] VITALS: BP 136/78; PULSE 78; RESP 16; TEMP 36.9; O2SAT 99
--- NOTE | 2020-06-24 04:50 | PC.NURSE ---
Pt rested comfortably most of this shift and Pain controlled well and patient stated I think this pill is doing good for me. Patient oriented times four. Patient did not leave the unit on the shift. Will continue to monitor for any acute changes.
[2020-06-24 05:00] VITALS: BMI 21.3
[2020-06-24 08:00] VITALS: BP 155/93; PULSE 90; RESP 18; TEMP 36.4; O2SAT 100
--- NOTE | 2020-06-24 09:06 | HMH.ACPN2 ---
Internal Medicine - PN: Subj *Date: 06/24/20 *Time: 09:06 Interval history: doing better today - less pain - Exam Vital signs and Labs for Last 24 Hours: Temp Pulse Resp BP Pulse Ox 97.6 F 90 18 155/93 H 100 06/24/20 08:00 06/24/20 08:00 06/24/20 08:00 06/24/20 08:00 06/24/20 08:00 I & O for Last 24 hours: Intake & Output 06/21/20 06/22/20 06/23/20 06/24/20 11:59 11:59 11:59 11:59 Intake Total 1360 / 1360 1550 / 1550 Balance 1360 / 1360 1550 / 1550 Weight 161 lb 5 oz 152 lb 8 oz - Constitutional no acute distress - *Routine HEENT Exam Head: Present: normocephalic Eye: Present: EOMI, PERRL ENT: Present: mucous membranes dry - *Routine Neck Exam Present: supple - *Routine Respiratory Exam Present: decreased breath sounds - *Routine Cardiovascular Exam Present: RRR, murmur - *Routine Abdominal Exam Present: soft - *Routine Extremities Exam Absent: calf tenderness - *Routine Skin Exam Present: intact - *Routine Neurological Exam Present: alert, oriented X3, CN II-XII intact - Routine Psychiatric Exam Present: cooperative Assessment and Plan (1) Pancreatic adenocarcinoma Status: Acute Category: Medical Code(s): C25.9 - Malignant neoplasm of pancreas, unspecified (2) Tobacco use Problem details: remove Status: Acute Category: Social Hx Code(s): Z72.0 - Tobacco use (3) IgA nephropathy Status: Chronic Category: Medical Code(s): N02.8 - Recurrent and persistent hematuria with other morphologic changes (4) Intractable pain Status: Acute Category: Medical Code(s): R52 - Pain, unspecified (5) Lung cancer Status: Acute Qualifiers: Laterality: left Lung location: unspecified part of lung Qualified Code(s): C34.92 - Malignant neoplasm of unspecified part of left bronchus or lung Category: Medical Code(s): C34.90 - Malignant neoplasm of unspecified part of unspecified bronchus or lung
[2020-06-24 15:24] VITALS: BP 156/99; PULSE 88; RESP 18; TEMP 36.4; O2SAT 99
--- NOTE | 2020-06-24 16:19 | PC.WOUNDNOTE ---
Pt has been off of the floor multiple times this shift. Pt educated on not leaving the floor after receiving pain medications d/t safety. Pt verbalized understanding. MD Law paged regarding pt's home medications, xarelto and amlodipine restarted. Pt refused amlodipine stating I will speak to Dr Mark about that, I don't take that medicine anymore . Pt has stated ffavorable results w/ PRN pain meds this shift. No other acute changes or complaints. Will continue to monitor.
[2020-06-24 19:45] VITALS: O2SAT 99
[2020-06-24 20:00] VITALS: BP 147/85; PULSE 91; RESP 18; TEMP 37.3; O2SAT 99
--- NOTE | 2020-06-25 02:46 | XR_ITS ---
PROCEDURE INFORMATION: Exam: XR Chest Exam date and time: 06/25/2020 2:46 AM Age: 50 years old Clinical indication: Device placement; Ett placement (vent status); Patient HX: Et tube placement, code; Additional info: PT intubated TECHNIQUE: Imaging protocol: XR of the chest. Views: 1 view. COMPARISON: CT CHEST WO CON 06/22/2020 4:45 PM FINDINGS: Tubes, catheters and devices: The endotracheal tube tip is approximately 6.5 cm above the elinor. There is a left subclavian LifePort central line with the tip projecting over the superior vena cava. Lungs: See Heart/Mediastinum finding. Pleural spaces: There is a small left pleural effusion with blunting of the costophrenic angle. Heart/Mediastinum: There is mild cardiomegaly with mild perihilar interstitial infiltrates. Bones/joints: The bones are grossly intact. IMPRESSION: Supportive tubes and lines as above.
[2020-06-25 02:47] LABS: Basophils % 0.3 % (0.1-2.0); Eosinophils # 0.4 K/mm3 (0.0-0.4); Eosinophils % 3.5 % (0.1-12.0); Hematocrit 30.3 % (42.0-52.0); Hemoglobin 9.7 g/dL (14.1-18.0); Lymphocytes # 3.1 K/mm3 (0.7-4.5); Lymphocytes % 26.4 % (10-50); Mean Corpuscular HGB Conc 31.9 g/dL (31.8-35.4); Mean Corpuscular Hemoglobin 31.3 pg (27.0-31.2); Mean Platelet Volume 7.3 fl (7.4-10.4); Monocytes # 0.8 K/mm3 (0.1-1.0); Monocytes % 6.4 % (1.7-9.3); Neutrophils # 7.5 K/mm3 (1.8-7.8); Neutrophils % 63.3 % (37.0-80.0); Platelet Count 382 K/mm3 (142-424); Red Blood Count 3.09 M/mm3 (4.60-6.20); Red Cell Distribution Width 16.6 % (11.5-17.5); White Blood Count 11.8 K/mm3 (4.8-10.8)
[2020-06-25 02:54] LABS: ABG Base Excess -19.4 mmol/L (-2.4-2.3); ABG HCO3 11.1 mmhg (22.0-26.0); ABG Oxygen Saturation 99 % (90-100); ABG PCO2 41.1 mmhg (35.0-45.0); ABG PO2 209.1 mmhg (80-100); ABG TCO2 12.4 mmhg (23-27)
--- NOTE | 2020-06-25 02:58 | ECG_ITS ---
APPROVED REPORT Exam: Resting ECG HR:119 bpm ECG Measurements Heart Rate 119 AXES LA 170 P 69 QRSd 86 QRS 19 QT 316 T 64 QTc 444 Conclusion Sinus tachycardia Possible Left atrial enlargement Inferior infarct, possibly acute Anterolateral infarct, possibly acute ACUTE [place] Abnormal ECG Electronically signed by : Shankar Carrasco, 06/25/2020 18:13:30
[2020-06-25 03:01] LABS: Anion Gap 11.2 mEq/L (5-15); Blood Urea Nitrogen 26 mg/dl (9-20); Carbon Dioxide 24 mmol/L (22.0-30.0); Chloride 108 mmol/L (98-107); Creatinine Clearance Estimated 77 mL/min (50-200); Estimated Glomerular Filt Rate 70 ml/min (>60); GFR (African American) 85 ML/MIN (>60); Glucose 114 mg/dl (74-100); Potassium 4.2 mmoL/L (3.5-5.1); Sodium 139 mmol/L (136-145)
[2020-06-25 03:18] LABS: ABG PH 7.05 mmol/L (7.35-7.45); Oxygen 100 %
[2020-06-25 03:21] LABS: ABG Base Excess -20.8 mmol/L (-2.4-2.3); ABG HCO3 10.2 mmhg (22.0-26.0); ABG Oxygen Saturation 100 % (90-100); ABG PCO2 40.2 mmhg (35.0-45.0); ABG PO2 261.1 mmhg (80-100); ABG TCO2 11.4 mmhg (23-27); Oxygen 75 %; PEEP 5; Tidal Volume 420; Vent Rate 18
[2020-06-25 03:22] LABS: Pressure Support 8
[2020-06-25 03:54] LABS: ABG PH 7.02 mmol/L (7.35-7.45)
--- NOTE | 2020-06-25 04:02 | HMH.RR ---
Acute Rapid Response Note - Subjective Date Responded: 06/25/20 Time Responded: 02:25 Provider Note: code marlen called -[id number]- pt well known to me with lung cancer but has been doing better with pain and expecting to do chemo in am- he reported to rn sob and not feeling well and then had c-p arrest - on arrival - cpr in progress with no resp or pulse but had pea - acls protocol started and wqas intubated and regained pulse and bp and was moving ext - blood work showed no acute changes and abg showed metabolic acidosis and trop was elevated and ekg showed acute stemi - pressure support was given as bp decreased and resp ceased - had discussed with dr leiva and 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 to 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1 H, ABG HCO3 10.2 L, ABG Total CO2 11.4 L, ABG O2 Saturation 100, ABG Base Excess -20.8 L, Vent Rate 18, Tidal Volume 420, PEEP 5 06/25/20 02:52: Specimen Source R/f, O2 % 100, ABG pH 7.05 L*, ABG pCO2 41.1, ABG pO2 209.1 H, ABG HCO3 11.1 L, ABG Total CO2 12.4 L, ABG O2 Saturation 99, ABG Base Excess -19.4 L 06/25/20 02:30: Sodium 139, Potassium 4.2, Chloride 108 H, Carbon Dioxide 24, Anion Gap 11.2, BUN 26 H D, Creatinine 1.10, Estimated Creat Clear 77, Estimated GFR 70, Est GFR ( Amer) 85, Glucose 114 H, Calcium 10.0, Troponin I 10.50 H 06/25/20 02:30: WBC 11.8 H, RBC 3.09 L, Hgb 9.7 L, Hct 30.3 L, MCV 98.0 H, MCH 31.3 H, MCHC 31.9, RDW 16.6, Plt Count 382, MPV 7.3 L, Neut % (Auto) 63.3, Lymph % (Auto) 26.4, Steele % (Auto) 6.4, Eos % (Auto) 3.5, Baso % (Auto) 0.3, Neut # (Auto) 7.5, Lymph # (Auto) 3.1, Steele # (Auto) 0.8, Eos # (Auto) 0.4, Baso # (Auto) 0.0 My Orders Category Date Time Status Prado, Insert [Urinary Catheter, Insert] ONCE Care 06/25/20 02:47 Active Chest XR -- portable [XR chest portable] Stat Exams 06/25/20 02:46 Completed Basic Metabolic Panel Stat Lab 06/25/20 02:30 Completed Complete Blood Count Auto Diff Stat Lab 06/25/20 02:30 Completed Trop I [Troponin I] Stat Lab 06/25/20 02:30 Completed 0.9 % Sodium Chloride [Sod Chlor 0.9% 1000mL Bag] 1,000 Med 06/25/20 03:08 Discontinued ml IV As directed Sodium Bicarbonate [Sodium Bicarbonate 8.4% 50mL Vial] Med 06/25/20 02:48 Discontinued 50 meq IV .STK-MED ONE ABG [Arterial Blood Gas] Stat RT 06/25/20 02:45 Ordered ABG [Arterial Blood Gas] Stat RT 06/25/20 03:10 Ordered Arterial Blood Gas Routine RT 06/25/20 02:52 Completed Arterial Blood Gas Routine RT 06/25/20 03:19 Completed - Radiology Findings #1 Xray Reviewed: Chest Image Reviewed: Yes I reviewed the patient's radiology image ED XR Results: Normal/NAD (intubated ) - ECG Data Tracing #1 Ischemic changes: acute STEMI Rapid Response Exam - General General appearance: other (apnea - nonresponsive ) - Head Head exam: atraumatic - Eye Eye exam: Present: other (nonresponsive) - ENT ENT exam: Present: other (intubated ) - Neck Neck exam: Present: trachea midline - Respiratory Respiratory exam: Present: other (intubated ) - Cardiovascular Cardiovascular exam: Present: other (no pulse ) - Abdominal Exam Abdominal exam: Present: soft - Extremities Exam Extremities exam: Absent: pedal edema - Neurological Exam Neurological exam: Present: other (apenea - nonresponsive ) - Skin Skin exam: Present: intact RR Procedures/Assess/Plan -
[2020-06-25 04:08] LABS: POC Glucose,Bedside 124 (70-110)
--- NOTE | 2020-06-25 04:13 | HMH.DEATH ---
Pronouncement Note - Date and Time of Date of : 06/25/20 Time of : 03:46 - Additional Data Confirmation of : no pulse, no respirations, no heart sounds, pupils fixed and dilated Family: attempt made Attending/PCP notified?: Yes Attending physician: Leonel Mark MD Was code activated?: Yes Autopsy requested?: No disability insurance claim examiner notified?: Yes Organ bank notified?: Yes Advance directives: No
--- NOTE | 2020-06-25 04:15 | HMH.DEADDC ---
Discharge Sum: Prov - Provider Primary care physician: Leonel Mark MD Visit Care Team Role Provider Type Pa Lewis MD Emergency Provider ER Physician Leonel Mark MD Admit Provider Staff Physician Attending Provider Primary Care Provider Admitting clinician: Leonel Mark Attending physician on admission: Leonel Mark Pronouncing clinician: Leonel Mark Discharge Sum: Summary - Date and Time Date of admission: 06/22/20 20:25 - Additional Data Attending physician: Leonel Mark MD
--- NOTE | 2020-06-25 04:16 | HMH.DCSUM ---
General - General Admission date:: 06/22/20 Discharge date: 06/25/20 HPI HPI: this pt presented to pcp office with intractable pain sec to known cancer santino in neck and lt sided chest pain - he was seen in the ed - s main complaints today are pain in his posterior left shoulder and neck which has been present for a year, but is now severe. States that he has chronic numbness in his left triceps and left thigh for 1 year. He says he is on pain medication, oxycodone 10mg, which is not helping and is only making him constipated. He says that he blew himself out last night with a suppository and laxatives. Had an abdominal x-ray today ordered by Dr. Mark. He says he has no appetite has not been eating or drinking for the past several days. Denies abdominal pain. Denies difficulty urinating. States he is able to ambulate. He has been receiving chemotherapy, but has not had any recently because he has been too sick to go. States he has a port that has hurt ever since it was put in. 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 pt admitted for ivf and meds and eval Hospital Course Hospital Course: pt was admitted with dec po intake and increased pain to lt shoulder and neck - he had known lung cancer and had seen oncology and missed most recent chemo but planned on restarting - he had improved on regiment of dilaudid and toradol prn - he had stable labs and had been doing well but suddenly with sob and not feeling well- he stopped breathing and no pulse and code blue was called - he was intubated and had limited response for awhile he failed to maintain pulse or resp and 0346 Objective Vital signs: Temp Pulse Resp BP Pulse Ox 99.1 F 91 H 18 147/85 H 99 06/24/20 20:00 06/24/20 20:00 06/24/20 20:00 06/24/20 20:00 06/24/20 20:00 severe distress - *Routine HEENT Exam Eye: Present: other (nonreactive pupils ) ENT: Present: other (intubated ) - *Routine Neck Exam Present: trachea midline. Absent: JVD - *Routine Respiratory Exam Present: patient mechanically ventilated - *Routine Cardiovascular Exam Present: other (no pulse ) - *Routine Abdominal Exam Present: soft - *Routine Extremities Exam Absent: edema - *Routine Skin Exam Present: intact - *Routine Neurological Exam obtunded and nonresponsive - Routine Psychiatric Exam Present: unable to assess Results Labs on day of discharge: Labs from last 24 hours 06/25/20 06/25/20 06/25/20 03:19 02:52 02:30 WBC RBC Hgb Hct MCV MCH MCHC RDW Plt Count MPV Neut % (Auto) Lymph % (Auto) Nash % (Auto) Eos % (Auto) Baso % (Auto) Neut # (Auto) Lymph # (Auto) Nash # (Auto) Eos # (Auto) Baso # (Auto) Specimen Source R/f R/f O2 % 75 100 ABG pH 7.02 L* 7.05 L* ABG pCO2 40.2 41.1 ABG pO2 261.1 H 209.1 H ABG HCO3 10.2 L 11.1 L ABG Total CO2 11.4 L 12.4 L ABG O2 Saturation 100 99 ABG Base Excess -20.8 L -19.4 L Vent Rate 18 Tidal Volume 420 PEEP 5 Sodium 139 Potassium 4.2 Chloride 108 H Carbon Dioxide 24 Anion Gap 11.2 BUN 26 H D Creatinine 1.10 Estimated Creat Clear 77 Estimated GFR 70 Est GFR ( Amer) 85 Glucose 114 H POC Glucose Calcium 10.0 Troponin I 10.50 H 06/25/20 06/25/20 02:30 02:27 WBC 11.8 H RBC 3.09 L Hgb 9.7 L Hct 30.3 L MCV 98.0 H MCH 31.3 H MCHC 31.9 RDW 16.6 Plt Count 382 MPV 7.3 L Neut % (Auto) 63.3 Lymph % (Auto) 26.4 Nash % (Auto) 6.4 Eos % (Auto) 3.5 Baso % (Auto) 0.3 Neut # (Auto) 7.5 Lymph # (Auto) 3.1 Nash # (Auto) 0.8 Eos # (Auto) 0.4 Baso # (Auto) 0.0 Specimen Source O2 % ABG pH ABG pCO2 ABG pO2 ABG HCO3 ABG Total CO2 ABG O2 Saturation ABG Base Excess Vent Rate Tidal Volume PEEP Sodium Potassium Chloride Carbon Dioxide
--- NOTE | 2020-06-25 04:20 | PC.NURSE ---
code blue called at 0222 0222 compressions started 022 ventilating via ambu bag 0222 Bolus NS 0.9% RFA 0223 pulse check - no pulse 0224 compressions resumed 0225 epi-in/flush 0225 pulse check - no pulse 0226 narcan-in/flush 0226 pulse check - no pulse 0226 compressions resumed 0226 FSBS 224 0228 epi-in/flush 0228 labs drawn by Jerica Britt, INTERPRETATIVE DANCER 0229 pulse check - no pulse 0229 agonal breaths 0230 pulse check - no pulse 0230 compressions resumed 0231 epi-in/flush 0233 pulse check - no pulse 0235 epi-in/flush 0235 pulse check - no pulse 0237 compressions resumed 0238 epi-in/flushed 0239 intubated with ETT 7 1/2 - color change confirmed with CO2 detector 0241 pulse check - completed by Dr. Mark right carotid/right femoral with doppler 0242 inserted IV 20g LAC 0245 ABG drawn #1 0248 agustin catheter placed 0249 urine 35mL sent to lab for testing 0249 BP 137/85 autocuff 0250 Bicarb-in/flush 0251 xray confirm ETT placement 0251 manual BP unable to obtain 0253 pulse check - completed Dr. Mark strong right carotid/right femoral with doppler 0255 Bicarb-in/flush 0256 OG tube placed 63 @ lip [address]300 [address]. Mark spoke with Dr. Mosqueda EKG strip sent to Dr. Mosqueda 0304 spontaneous left arm movement reaching for agustin catheter that is in place 0306 Levophed 20mcg started IV LAC 0307 BP 100/38 autocuff HR 55 0313 spontaneous right leg movement 0315 ABG drawn #2 0315 Troponin 13.5 lab resulted and reported to Dr. Mark 0315 Dr. Mark spoke with Dr. Mosqueda and received order notify Interactive Project Manager team 0317 Atropine-in HR dropping below 38 0318 pulse check - completed by TJ right carotid with doppler 0318 manual BP Left arm 80/40 0318 oxygen dropping 0320 ventilating via ambu bag 0320 pharmacist called to get correct dosing for Dopamine 0321 pulse check - completed by Barbara right carotid with doppler 0324 Bicarb-in/flush 0325 Atropine-in/flush 0326 Epi-in/flush 0327 pulse check - no pulse - compressions started 0327 port accessed by Jacqueline Gates, KRISTY with good blood return 0328 Dopamine started 50mcg confirmed by Shaggy Hines, pharmacist 0329 pulse check - no pulse 0330 not breathing 0331 pulse check - no pulse 0332 pulse check - no pulse 0332 IV RFA discontinued 0332 NS 0.9% moved from RFA to LAC 0333 pulse check - no pulse 0334 epi-in/flush 0334 BP unable to be obtained manually and autocuff 0334 Dr. Mark spoke with Dr. Mosqueda received order to cancel Interactive Project Manager team 0335 pulse check - no pulse 0335 Dr. Mark gave order to stop all medications (Levophed, NS, & Dopamine) [address] Mark called time of total urine ouput 85mL Staff present: Felix Smith, TEO, Jacqueline Gates RN, Tatiana Hernandez, RN, Gale Michele, RN, Stephany Musa, KRISTY, Dr. Mark, Sanaz Ugarte, KRISTY, GIOVANY Mcgovern, KRISTY, TERRA Cottrell, Dimple Guerrero, KRISTY, Barbara Car, KRISTY, TERRA Hamilton, STEVE ErvinT
--- NOTE | 2020-06-25 04:30 | PC.NURSE ---
Left voicemail for daughter who is listed as person to notify that there has been a change in status. Daughter returned call about 30 minutes later and she was updated on patient status. Daughter is currently calling 2 other siblings and patient's significant other and will call back with arrangements and if they are coming to the hospital before the patient leaves with the home. Post mortem care completed.
--- NOTE | 2020-06-25 05:13 | PC.NURSE ---
0218 PT CALLED TO NURSES STATION TO REPORT SHORTNESS OF AIR. DIFFICULTY BREATHING 0219 RN AT BEDSIDE, PT HARD TO AROUSE, STERNAL RUB, STIMULATED PT. CALLED FOR ASSISTANCE, RN X 2 AT BESIDE. CODE BLUE CALLED AT THIS TIME. 0220 COMPRESSIONS STARTED, WEAK PULSES, UNABLE TO OBTAIN B/P. SEE CODE NOTE FOR TIMELINE 0355 [facility] CONTACTED, SIMIN PAGE MD NOTIFIED, DR. DOMINGUEZ AT BEDSIDE FOR CODE 0429 AWAITING CALL BACK FROM [facility], APPROACHING FAMILY FOR POSSIBLE EYE DONATION INSTRUCTIONAL TECHNOLOGY TEACHER CONTACTED NEXT OF KIN, SEE NOTE. PT REMAINS IN ROOM AT THIS TIME, AWAITING [facility] AND HOME ARRANGEMENTS.
--- NOTE | 2020-06-25 05:34 | PC.NURSE ---
0747 [facility] RETURNED CALL AT THIS TIME, CONTINUES TO AWAIT FAMILY'S CALL FOR EYE DONATION. INSTRUCTED TO PREP EYES. DO NOT RELEASE PT TO HOME UNTIL FAMILY NOTIFIES [facility]. 3880 EYE PREP OF 5 DROPS OF SALINE TO EACH EYE, COVERED WITH SALINE SOAKED 4X4. EYES CLOSED
--- NOTE | 2020-06-25 09:24 | PC.NURSE ---
spoke with ld at this time and was informed that patient would not be a donor.
--- NOTE | 2020-06-25 09:25 | PC.NURSE ---
attempted to call daughter at this time for home. no answer. voicemail left for return of call
--- NOTE | 2020-06-25 10:05 | PC.NURSE ---
spoke with daughter on the phone who stated patient would need to be released [facility]. daughter requested to have belongings placed in bag and left here at hospital for them to be picked up here unless she calls before home arrives and states otherwise. daughter also requested to be notified once home has arrived.
--- NOTE | 2020-06-25 11:01 | PC.NURSE ---
1042 patient body was released to [facility]. family was notified. belongings locked up until family can obtain. home medications sent to pharmacy to be disposed of.
[2020-06-26 07:37] LABS: ABG PCO2 41.1 mmhg (35.0-45.0); ABG PH 7.05 mmol/L (7.35-7.45); ABG PO2 209.1 mmhg (80-100)
[2020-06-26 07:38] LABS: ABG Base Excess -19.4 mmol/L (-2.4-2.3); ABG HCO3 11.1 mmhg (22.0-26.0); ABG Oxygen Saturation 99 % (90-100); ABG TCO2 12.4 mmhg (23-27); Oxygen 100 %; Source R FEMORAL
[2020-06-26 07:41] LABS: ABG HCO3 10.2 mmhg (22.0-26.0); ABG PCO2 40.2 mmhg (35.0-45.0); ABG PH 7.02 mmol/L (7.35-7.45); ABG PO2 261.1 mmhg (80-100); ABG TCO2 11.4 mmhg (23-27)
[2020-06-26 07:42] LABS: ABG Base Excess -20.8 mmol/L (-2.4-2.3); ABG Oxygen Saturation 100 % (90-100); Oxygen 75% %; Source R FEMORAL
== END 2020-06-25 10:42 | disposition expired | DRG 947 ==
LOC: ER 15:29 → 2ND 18:52
PROVIDERS: Admitting Provider Emergency Medicine; Emergency Provider Emergency Medicine; PCP Emergency Medicine; Visit Provider Emergency Medicine
DX: G89.3 Neoplasm related pain (acute) (chronic) (principal); I21.3 ST elevation (STEMI) myocardial infarction of unspecified site; C25.9 Malignant neoplasm of pancreas, unspecified; C34.92 Malignant neoplasm of unspecified part of left bronchus or lung; E87.2 Acidosis; Z94.0 Kidney transplant status; Z20.822 Contact with and (suspected) exposure to COVID-19; F17.210 Nicotine dependence, cigarettes, uncomplicated; E78.5 Hyperlipidemia, unspecified; Z86.718 Personal history of other venous thrombosis and embolism; M79.7 Fibromyalgia; Z88.1 Allergy status to other antibiotic agents; Z88.2 Allergy status to sulfonamides; I46.9 Cardiac arrest, cause unspecified
CPT/HCPCS: 31500; 94002; 71045; 71250; 72125; 74021; 80048; 80053; 82150; 82803; 82962; 83690; 84484; 85025; 93005; 96365; 96375; 99284; G0378; J2310; J2405; U0003